=== PATIENT | male | born 1965 | race Caucasian/White ===

== ENCOUNTER 2019-12-18 04:07 | Inpatient (IN) | payer SELFPAY ==
[2019-12-18] MEDS ORDERED: Famotidine 20 MG/2 ML SDV IVPUSH ONE (04:08)
[2019-12-18] MEDS ORDERED: Aluminum Hydroxide/Magnesium Hydroxide/Simethicone Susp 30 ML Cup PO ONE (04:08)
--- NOTE | 2019-12-18 04:15 | EDM.PDOC ---
ED [facility] GENERAL MEDICAL PROBLEM - General Chief Complaint: Abdominal Pain Stated Complaint: AMB Time Seen by Provider: 12/18/19 04:14 Source of Information: Reports: Patient History Limitations: Reports: No Limitations - History of Present Illness INITIAL COMMENTS - FREE TEXT/NARRATIVE: Patient is a 54-year-old male with a past medical history of smoking presents with a chief complaint of epigastric pain. Patient states epigastric pain started on Tuesday. The pain has intermittently continued but is worsened this morning. Patient reports that the pain now radiates to the right upper quadrant. Patient states that the pain is fairly constant and he feels nauseous but is unable to vomit. Patient denies any diarrhea or difficulty passing stool. Patient reports hot flashes but is unsure if he has had a fever. Patient denies any flank pain, dysuria, hematuria. Patient has no prior abdominal surgeries. Patient denies any prior similar history of pain. In addition, patient is not experiencing any chest pain, shortness of breath, back pain. Pmhx: None Pshx: None Family Hx: noncontributory Smoking history? Per HPI Etoh use? none Drug use? none In addition to that documented in the HPI above, the additional ROS was obtained : Constitutional: Denies fevers or chills Eyes: Denies vision changes ENMT: Denies sore throat CV: Denies chest pain Resp: Denies SOB GI: Per HPI : Denies painful urination MSK: Denies recent trauma Skin: Denies new rashes Neuro: Denies new numbness or tingling or weakness Endocrine: Denies unexpected weight loss Heme: Denies bleeding disorders I have reviewed the triage vital signs Const: Well nourished, well developed, appears stated age Eyes: PERRL, no conjunctival injection HENT: NCAT, Neck supple without meningismus CV: RRR, Warm, well-perfused extremities RESP: CTAB, Unlabored respiratory effort GI: Tender palpation of the right upper quadrant positive Ingram sign. No guarding, non-distended, no masses MSK: No gross deformities appreciated Skin: Warm, dry. No rashes Neuro: Alert, video game technician II-XII grossly intact. Sensation and motor function of extremities grossly intact. Psych: Appropriate mood and affect Assessment and plan: Patient is 54-year-old male with a chief complaint of right upper quadrant abdominal pain. Patient has elevated white blood cell count but is afebrile and not tachycardic. Patient CT scan demonstrates distended gallbladder with gallbladder wall edema and possible stone in the neck. Patient will have right upper quadrant ultrasound done and is currently pending that study at this time. Case is discussed with Dr. Escalera the on-call general surgeon who is concerned for gallbladder necrosis and recommended n.p.o., IV fluids, antibiotics. Patient will be admitted to general surgery for further antibiotic administration and for surgical evaluation. Right Upper Abdomen Pain Score (Numeric/FACES): 7 - Related Data Allergies Allergy/AdvReac Type Severity Reaction Status Date / Time No Known Allergies Allergy Verified 12/18/19 04:08 Home Meds: Home Meds Non-Formulary Medication [NF Drug] 1 each EARRT ASDIRECTED 12/18/19 [History] Past Medical History - Infectious Disease History Infectious Disease History: Reports: Measles, Mumps - Past Surgical History HEENT Surgical History: Reports: Myringotomy w Tube(s) Social & Family History - Family History Family Medical History: Noncontributory - Tobacco Use Smoking Status *Q: Current Every Day Smoker Years of Tobacco use: 35 Packs/Tins Daily: 2 - Caffeine Use Caffeine Use: Reports: Soda - Recreational Drug Use Recreational Drug Use: No ED ROS GENERAL - Review of Systems Review Of Systems: See Below ED EXAM, GI/ABD - Physical Exam Exam: See Below Course - Vital Signs Last Recorded V/S: Last Vital Signs Temp 36.7 C 12/18/19 04:08 Pulse 86 12/18/19 04:08 Resp 19 12/18/19 04:08 BP 164/98 H 12/18/19 04:08 Pulse Ox 96 12/18/19 04:08 - Orders/Labs/Meds Orders: Active Orders 24 hr Category Date Time Status Admission Status [Patient Status] [ADT] Stat ADT 12/18/19 06:12 Active EKG Documentation Completion [RC] STAT Care 12/18/19 04:08 Active Abdomen Ltd [US] Stat Exams 12/18/19 06:08 Ordered Piperacillin/Tazobactam [Piperacil-Tazobact] 4.5 gm Med 12/18/19 06:15 Active Sodium Chloride 0.9% [Normal Saline] 100 ml IV ONETIME Sodium Chloride 0.9% [Normal Saline] 1,000 ml Med 12/18/19 04:45 Active IV ASDIRECTED Medication Orders Sodium Chloride (Normal Saline) 1,000 mls @ 999 mls/hr IV ASDIRECTED LALITA Last Admin: 12/18/19 04:47 Dose: 999 mls/hr Piperacillin Sod/Tazobactam (Sod 4.5 gm/ Sodium Chloride) 100 mls @ 100 mls/hr IV ONETIME ONE Stop: 12/18/19 07:14 Labs: Laboratory Tests 12/18/19 12/18/19 12/18/19 Range/Units 04:05 04:05 04:15 WBC 23.46 H (4.0-11.0) K/uL RBC 6.30 H (4.50-5.90) M/uL Hgb 20.0 H (13.0-17.0) g/dL Hct 57.0 H (38.0-50.0) % MCV 90.5 (80.0-98.0) fL MCH 31.7 (27.0-32.0) pg MCHC 35.1 (31.0-37.0) g/dL RDW Std Deviation 43.6 (28.0-62.0) fl RDW Coeff of Jv 13 (11.0-15.0) % Plt Count 252 (150-400) K/uL MPV 10.10 (7.40-12.00) fL Neut % (Auto) 81.6 H (48.0-80.0) % Lymph % (Auto) 11.1 L (16.0-40.0) % [place] % (Auto) 7.2 (0.0-15.0) % Eos % (Auto) 0.0 (0.0-7.0) % Baso % (Auto) 0.1 (0.0-1.5) % Neut # (Auto) 19.1 H (1.4-5.7) K/uL Lymph # (Auto) 2.6 H (0.6-2.4) K/uL [place] # (Auto) 1.7 H (0.0-0.8) K/uL Eos # (Auto) 0.0 (0.0-0.7) K/uL Baso # (Auto) 0.0 (0.0-0.1) K/uL Nucleated RBC % 0.0 /100WBC Nucleated RBCs # 0 K/uL Sodium 139 (136-148) mmol/L Potassium 4.2 (3.5-5.1) mmol/L Chloride 103 (98-107) mmol/L Carbon Dioxide 20.9 L (21.0-32.0) mmol/L BUN 16 (7.0-18.0) mg/dL Creatinine 1.2 (0.8-1.3) mg/dL Est Cr Clr Drug Dosing 68.74 mL/min Estimated GFR (MDRD) > 60.0 ml/min Glucose 150 H (74-106) mg/dL Calcium 10.1 (8.5-10.1) mg/dL Total Bilirubin 0.7 (0.2-1.0) mg/dL AST 17 (15-37) IU/L ALT 35 (14-63) IU/L Alkaline Phosphatase 89 (46-116) U/L Troponin I < 0.050 (0.000-0.056) ng/mL Total Protein 7.7 (6.4-8.2) g/dL Albumin 4.0 (3.4-5.0) g/dL Globulin 3.7 (2.6-4.0) g/dL Albumin/Globulin Ratio 1.1 (0.9-1.6) Lipase 86 (73-393) U/L Urine Color YELLOW Urine Appearance CLEAR Urine pH 5.5 (5.0-8.0) Ur Specific [place] >= 1.030 (1.001-1.035) Urine Protein TRACE H (NEGATIVE) mg/dL Urine Glucose (UA) NEGATIVE (NEGATIVE) mg/dL Urine Ketones 40 H (NEGATIVE) mg/dL Urine Occult Blood NEGATIVE (NEGATIVE) Urine Nitrite NEGATIVE (NEGATIVE) Urine Bilirubin NEGATIVE (NEGATIVE) Urine Urobilinogen 0.2 (<2.0) EU/dL Ur Leukocyte Esterase NEGATIVE (NEGATIVE) Urine RBC NONE SEEN (0-2/HPF) Urine WBC 0-1 (0-5/HPF) Ur Epithelial Cells RARE (NONE-FEW) Urine Bacteria FEW (NEGATIVE) Urine Mucus FEW (NONE-MOD) Meds: Medications Generic Name Dose Route Start Last Admin Trade Name Freq PRN Reason Stop Dose Admin Sodium Chloride 1,000 mls @ 999 mls/hr 12/18/19 04:45 12/18/19 04:47 Normal Saline IV 999 mls/hr ASDIRECTED LALITA Administration Piperacillin Sod/Tazobactam 100 mls @ 100 mls/hr 12/18/19 06:15 Sod 4.5 gm/ Sodium Chloride IV 12/18/19 07:14 ONETIME ONE Discontinued Medications Generic Name Dose Route Start Last Admin Trade Name Freq PRN Reason Stop Dose Admin Al Hydroxide/Mg Hydroxide 30 ml 12/18/19 04:08 12/18/19 04:15 Mag-Al Plus PO 12/18/19 04:09 30 ml ONETIME ONE Administration Famotidine 20 mg 12/18/19 04:08 12/18/19 04:15 Pepcid IVPUSH 12/18/19 04:09 20 mg ONETIME ONE Administration Iopamidol 100 ml 12/18/19 05:13 12/18/19 05:38 Isovue-370 (76%) IVPUSH 12/18/19 05:14 100 ml ONETIME STA Administration Morphine Sulfate 8 mg 12/18/19 06:07 12/18/19 06:13 Morphine IVPUSH 12/18/19 06:08 8 mg ONETIME ONE Administration Ondansetron HCl 4 mg 12/18/19 06:08 12/18/19 06:14 Zofran IVPUSH 12/18/19 06:09 4 mg ONETIME ONE Administration Departure - Departure Time of Disposition: 06:19 Disposition: Admitted As Inpatient 64 Clinical Impression: Cholecystitis - Discharge Information Forms: ED Department Discharge Sepsis Event Note - Evaluation Sepsis Screening Result: No Definite Risk - Focused Exam Vital Signs: Vital Signs Temp Pulse Resp BP Pulse Ox 12/18/19 04:08 36.7 C 86 19 164/98 H 96 Date Exam was Performed: 12/18/19 Time Exam was Performed: 06:16 - My Orders Last 24 Hours: My Active Orders 12/18/19 04:08 EKG Documentation Completion [RC] STAT 12/18/19 04:45 Sodium Chloride 0.9% [Normal Saline] 1,000 ml IV ASDIRECTED 12/18/19 06:08 Abdomen Ltd [US] Stat 12/18/19 06:12 Admission Status [Patient Status] [ADT] Stat 12/18/19 06:15 Piperacillin/Tazobactam [Piperacil-Tazobact] 4.5 gm Sodium Chloride 0.9% [ Normal Saline] 100 ml IV ONETIME - Assessment/Plan Last 24 Hours: My Active Orders 12/18/19 04:08 EKG Documentation Completion [RC] STAT 12/18/19 04:45 Sodium Chloride 0.9% [Normal Saline] 1,000 ml IV ASDIRECTED 12/18/19 06:08 Abdomen Ltd [US] Stat 12/18/19 06:12 Admission Status [Patient Status] [ADT] Stat 12/18/19 06:15 Piperacillin/Tazobactam [Piperacil-Tazobact] 4.5 gm Sodium Chloride 0.9% [ Normal Saline] 100 ml IV ONETIME
--- NOTE | 2019-12-18 04:32 | CR ---
INDICATION: Chest pain TECHNIQUE: Portable upright frontal view of the chest. COMPARISON: None FINDINGS: The lungs are clear. There is no sizable pleural effusion or pneumothorax. The cardiomediastinal silhouette is normal. The visualized osseous structures are unremarkable. IMPRESSION: No acute intrathoracic process. Dictated by Angela Gardner MD @ Dec 18 2019 4:29AM Signed by Dr. Angela Gardner @ Dec 18 2019 4:29AM
[2019-12-18 04:41] LABS: BLOOD UREA NITROGEN,BUN 16 mg/dL (7.0-18.0); CARBON DIOXIDE,CO2 20.9 mmol/L (21.0-32.0); CHLORIDE,CL 103 mmol/L (98-107); GLUCOSE RANDOM 150 mg/dL (74-106); LIPASE 86 U/L (73-393); POTASSIUM,K 4.2 mmol/L (3.5-5.1); SODIUM,NA 139 mmol/L (136-148)
[2019-12-18] MEDS ORDERED: Sodium Chloride 0.9% 1,000 ML IV SCH (04:45)
[2019-12-18] MEDS ORDERED: Iopamidol 755 Mg/ML 100 ML Bottle IVPUSH STA (05:13)
--- NOTE | 2019-12-18 06:05 | CT ---
Indication: Right upper quadrant abdominal pain Technique: Contrast enhanced axial CT imaging through the abdomen and pelvis. 100 mL Isovue 370 contrast agent was administered intravenously. Sagittal and coronal reconstructions are provided. Comparison: None Findings: The gallbladder is distended. There is gallbladder wall edema. A 13 mm hyperdense stone is seen in the gallbladder neck. There is no significant abnormality of the liver, spleen, pancreas, adrenal glands. The portal vein is patent. There is normal caliber of the abdominal aorta. There is no abdominal lymphadenopathy. A 3 mm nonobstructing stone is noted in the upper pole of the right kidney. The kidneys are otherwise unremarkable. The stomach and duodenum are unremarkable. There are no abnormally dilated small bowel loops. The appendix is noninflamed. There is colonic diverticulosis without wall thickening or pericolonic inflammatory stranding to suggest acute diverticulitis. There is no free intraperitoneal fluid or air. The visualized osseous structures are unremarkable. The included lung bases are clear. Impression: 1. Distended gallbladder with wall edema and cholelithiasis. Findings are concerning for acute calculous cholecystitis. Ultrasound is recommended for confirmation. 2. Colonic diverticulosis without evidence of diverticulitis. 3. Small nonobstructing left renal stone. Please note that all CT scans at this facility use dose modulation, iterative reconstruction, and/or weight-based dosing when appropriate to reduce radiation dose to as low as reasonably achievable. Dictated by Angela Gardner MD @ Dec 18 2019 5:55AM Signed by Dr. Angela Gardner @ Dec 18 2019 6:03AM
[2019-12-18] MEDS ORDERED: Morphine 10 MG/ML Syringe IVPUSH ONE (06:07)
[2019-12-18] MEDS ORDERED: Ondansetron 4 MG/2 ML SDV IVPUSH ONE (06:08)
[2019-12-18] MEDS ORDERED: Piperacillin/Tazobactam 4.5 GM in Sodium Chloride 0.9% 100 ML IV ONE (06:15)
[2019-12-18] MEDS ORDERED: Lactated Ringers 1,000 ML IV SCH (06:30)
[2019-12-18] MEDS ORDERED: Morphine 4 MG/ML Syringe IVPUSH ONE (06:51)
--- NOTE | 2019-12-18 07:12 | US ---
INDICATION: Abdominal pain. TECHNIQUE: Abdominal ultrasound limited to the right upper quadrant. FINDINGS: The liver is normal in size and displays changes of diffuse fatty infiltration. There are no focal abnormalities in the liver. No dilatation of intrahepatic bile ducts. The common bile duct measures 6 mm. 2 centimeter stone in the neck of the gallbladder. Gallbladder wall thickness is normal. Per the technologist notation, positive sonographic Ingram`s sign. The right kidney measures 12.4 cm x 5.5 cm x 5.4 cm. No hydronephrosis. No free fluid in the right upper quadrant. IMPRESSION: 1. Cholelithiasis. Positive sonographic Ingram`s sign. 2. Diffuse fatty infiltration of the liver. Dictated by Petr Mandujano MD @ Dec 18 2019 7:07AM Signed by Dr. Petr Mandujano @ Dec 18 2019 7:09AM
[2019-12-18 08:04] LABS: HEMOGLOBIN A1C 5.4 % (4.5-6.2)
[2019-12-18] MEDS ORDERED: Ondansetron 4 MG/2 ML SDV IVPUSH PRN (08:04)
[2019-12-18] MEDS ORDERED: Sodium Chloride 0.9% 10 ML SDV IV PRN (08:04)
[2019-12-18] MEDS ORDERED: Sodium Chloride 0.9% 2.5 ML Syringe FLUSH PRN (08:04)
[2019-12-18] MEDS ORDERED: diphenhydrAMINE 50 MG/ML SDV IVPUSH PRN (08:04)
[2019-12-18] MEDS ORDERED: Sodium Chloride 0.9% 10 ML Syringe FLUSH PRN (08:04)
[2019-12-18] MEDS ORDERED: Acetaminophen 325 MG Tab PO PRN (08:04)
--- NOTE | 2019-12-18 09:08 | PCM.HP.2 ---
H&P History of Present Illness - General Date of Service: 12/18/19 Admit Problem/Dx: Admission Diagnosis/Problem Admission Diagnosis/Problem Cholecystitis Source of Information: Patient History Limitations: Reports: No Limitations - History of Present Illness Initial Comments - Free Text/Narative: Patient is a 54 year old male who presents with an acute onset of abdominal pain. It started Tuesday. At that time it was epigastric and intermittent. Last night it became constant and severe. It radiated to the RUQ. It was associated with nausea and vomiting. He felt warm and states that he had chills. His PMHx is significant for moderate to heavy smoking most of his adult life. He does not have a primary physician. He has been passing gas and having normal bowel movements. Denies infectious contacts. Denies dysuria, unexplained weight loss, or frequency with urination. He was hypertensive in the ER. HR was normal. He had an elevated WBC of 23K. He had polycythemia with Hct of 20 and HCT of 57. He had an elevated glucose as well. He underwent a CT scan that showed an enlarged and inflamed edematous gallbladder with a 13mm stone stuck in the neck consistent with cholecystitis. US showed cholelithiasis. Right Upper Abdomen Pain Score (Numeric/FACES): 7 - Related Data Allergies/Adverse Reactions: Allergies Allergy/AdvReac Type Severity Reaction Status Date / Time No Known Allergies Allergy Verified 12/18/19 04:08 Home Medications: Home Meds Non-Formulary Medication [NF Drug] 1 each EARRT ASDIRECTED 12/18/19 [History] Past Medical History - Infectious Disease History Infectious Disease History: Reports: Measles, Mumps - Past Surgical History HEENT Surgical History: Reports: Myringotomy w Tube(s) Social & Family History - Family History Family Medical History: Noncontributory - Tobacco Use Smoking Status *Q: Current Every Day Smoker Years of Tobacco use: 35 Packs/Tins Daily: 2 - Caffeine Use Caffeine Use: Reports: Soda - Recreational Drug Use Recreational Drug Use: No H&P Review of Systems - Review of Systems: Review Of Systems: Comprehensive ROS is negative, except as noted in HPI. Exam - Exam Exam: See Below - Vital Signs Vital Signs: Last Vital Signs Temp 37.8 C 12/18/19 08:57 Pulse 89 02/25/20 08:57 Resp 18 12/18/19 08:57 BP 129/67 12/18/19 08:57 Pulse Ox 94 L 12/18/19 08:57 Weight: 97.069 kg - Exam General: Alert, Oriented HEENT: Conjunctiva Clear, Mucosa Moist & [place], Posterior Pharynx Clear Lungs: Normal Respiratory Effort, Decreased Breath Sounds (mild, to bases bilaterally. ) Cardiovascular: Regular Rate, Regular Rhythm GI/Abdominal Exam: Soft, Non-Tender, No Distention, No Mass Back Exam: Normal Inspection Extremities: Normal Inspection - Patient Data Lab Results Last 24 hrs: Laboratory Results - last 24 hr 12/18/19 12/18/19 12/18/19 Range/Units 04:05 04:05 04:15 WBC 23.46 H (4.0-11.0) K/uL RBC 6.30 H (4.50-5.90) M/uL Hgb 20.0 H (13.0-17.0) g/dL Hct 57.0 H (38.0-50.0) % MCV 90.5 (80.0-98.0) fL MCH 31.7 (27.0-32.0) pg MCHC 35.1 (31.0-37.0) g/dL RDW Std Deviation 43.6 (28.0-62.0) fl RDW Coeff of Jv 13 (11.0-15.0) % Plt Count 252 (150-400) K/uL MPV 10.10 (7.40-12.00) fL Neut % (Auto) 81.6 H (48.0-80.0) % Lymph % (Auto) 11.1 L (16.0-40.0) % [place] % (Auto) 7.2 (0.0-15.0) % Eos % (Auto) 0.0 (0.0-7.0) % Baso % (Auto) 0.1 (0.0-1.5) % Neut # (Auto) 19.1 H (1.4-5.7) K/uL Lymph # (Auto) 2.6 H (0.6-2.4) K/uL [place] # (Auto) 1.7 H (0.0-0.8) K/uL Eos # (Auto) 0.0 (0.0-0.7) K/uL Baso # (Auto) 0.0 (0.0-0.1) K/uL Nucleated RBC % 0.0 /100WBC Nucleated RBCs # 0 K/uL Lactate (0.20-2.00) mmol/L Sodium 139 (136-148) mmol/L Potassium 4.2 (3.5-5.1) mmol/L Chloride 103 (98-107) mmol/L Carbon Dioxide 20.9 L (21.0-32.0) mmol/L BUN 16 (7.0-18.0) mg/dL Creatinine 1.2 (0.8-1.3) mg/dL Est Cr Clr Drug Dosing 68.74 mL/min Estimated GFR (MDRD) > 60.0 ml/min Glucose 150 H (74-106) mg/dL Hemoglobin A1c (4.5-6.2) % Calcium 10.1 (8.5-10.1) mg/dL Total Bilirubin 0.7 (0.2-1.0) mg/dL AST 17 (15-37) IU/L ALT 35 (14-63) IU/L Alkaline Phosphatase 89 (46-116) U/L Troponin I < 0.050 (0.000-0.056) ng/mL Total Protein 7.7 (6.4-8.2) g/dL Albumin 4.0 (3.4-5.0) g/dL Globulin 3.7 (2.6-4.0) g/dL Albumin/Globulin Ratio 1.1 (0.9-1.6) Lipase 86 (73-393) U/L Urine Color YELLOW Urine Appearance CLEAR Urine pH 5.5 (5.0-8.0) Ur Specific [place] >= 1.030 (1.001-1.035) Urine Protein TRACE H (NEGATIVE) mg/dL Urine Glucose (UA) NEGATIVE (NEGATIVE) mg/dL Urine Ketones 40 H (NEGATIVE) mg/dL Urine Occult Blood NEGATIVE (NEGATIVE) Urine Nitrite NEGATIVE (NEGATIVE) Urine Bilirubin NEGATIVE (NEGATIVE) Urine Urobilinogen 0.2 (<2.0) EU/dL Ur Leukocyte Esterase NEGATIVE (NEGATIVE) Urine RBC NONE SEEN (0-2/HPF) Urine WBC 0-1 (0-5/HPF) Ur Epithelial Cells RARE (NONE-FEW) Urine Bacteria FEW (NEGATIVE) Urine Mucus FEW (NONE-MOD) 02/25/20 02/25/20 Range/Units 06:30 06:30 WBC (4.0-11.0) K/uL RBC (4.50-5.90) M/uL Hgb (13.0-17.0) g/dL Hct (38.0-50.0) % MCV (80.0-98.0) fL MCH (27.0-32.0) pg MCHC (31.0-37.0) g/dL RDW Std Deviation (28.0-62.0) fl RDW Coeff of Jv (11.0-15.0) % Plt Count (150-400) K/uL MPV (7.40-12.00) fL Neut % (Auto) (48.0-80.0) % Lymph % (Auto) (16.0-40.0) % [place] % (Auto) (0.0-15.0) % Eos % (Auto) (0.0-7.0) % Baso % (Auto) (0.0-1.5) % Neut # (Auto) (1.4-5.7) K/uL Lymph # (Auto) (0.6-2.4) K/uL [place] # (Auto) (0.0-0.8) K/uL Eos # (Auto) (0.0-0.7) K/uL Baso # (Auto) (0.0-0.1) K/uL Nucleated RBC % /100WBC Nucleated RBCs # K/uL Lactate 1.7 (0.20-2.00) mmol/L Sodium (136-148) mmol/L Potassium (3.5-5.1) mmol/L Chloride (98-107) mmol/L Carbon Dioxide (21.0-32.0) mmol/L BUN (7.0-18.0) mg/dL Creatinine (0.8-1.3) mg/dL Est Cr Clr Drug Dosing mL/min Estimated GFR (MDRD) ml/min Glucose (74-106) mg/dL Hemoglobin A1c 5.4 (4.5-6.2) % Calcium (8.5-10.1) mg/dL Total Bilirubin (0.2-1.0) mg/dL AST (15-37) IU/L ALT (14-63) IU/L Alkaline Phosphatase (46-116) U/L Troponin I (0.000-0.056) ng/mL Total Protein (6.4-8.2) g/dL Albumin (3.4-5.0) g/dL Globulin (2.6-4.0) g/dL Albumin/Globulin Ratio (0.9-1.6) Lipase (73-393) U/L Urine Color Urine Appearance Urine pH (5.0-8.0) Ur Specific [place] (1.001-1.035) Urine Protein (NEGATIVE) mg/dL Urine Glucose (UA) (NEGATIVE) mg/dL Urine Ketones (NEGATIVE) mg/dL Urine Occult Blood (NEGATIVE) Urine Nitrite (NEGATIVE) Urine Bilirubin (NEGATIVE) Urine Urobilinogen (<2.0) EU/dL Ur Leukocyte Esterase (NEGATIVE) Urine RBC (0-2/HPF) Urine WBC (0-5/HPF) Ur Epithelial Cells (NONE-FEW) Urine Bacteria (NEGATIVE) Urine Mucus (NONE-MOD) Result Diagrams: 12/18/19 15:04 12/18/19 15:04 Lonnie Results Last 24 hrs: Microbiology 12/18/19 07:12 Anaerobic Blood Culture - Final Blood Sepsis Event Note - Evaluation Sepsis Screening Result: No Definite Risk - Focused Exam Vital Signs: Vital Signs Temp Pulse Resp BP Pulse Ox 12/18/19 08:57 37.8 C 89 18 129/67 94 L 12/18/19 07:22 91 18 147/92 H 93 L 12/18/19 06:10 84 152/98 H 97 12/18/19 05:40 76 16 154/93 H 95 12/18/19 04:40 76 150/97 H 90 L 12/18/19 04:10 69 16 148/93 H 92 L 12/18/19 04:08 36.7 C 86 19 164/98 H 96 Date Exam was Performed: 12/18/19 Time Exam was Performed: 16:44 - Problem List (1) Nephrolithiasis SNOMED Code(s): 57937194 ICD Code: N20.0 - CALCULUS OF KIDNEY Status: Acute Current Visit: Yes (2) Polycythemia secondary to smoking SNOMED Code(s): 01381338 ICD Code: D75.1 - SECONDARY POLYCYTHEMIA Status: Acute Current Visit: Yes (3) Cholecystitis SNOMED Code(s): 62353898 ICD Code: K81.9 - CHOLECYSTITIS, UNSPECIFIED Status: Acute Current Visit : Yes (4) Dehydration SNOMED Code(s): 08284977 ICD Code: E86.0 - DEHYDRATION Status: Acute Current Visit: Yes Problem List Initiated/Reviewed/Updated: Yes Orders Last 24hrs: Active Orders 24 hr Category Date Time Status Patient Status [ADT] Routine ADT 12/18/19 08:04 Active EKG Documentation Completion [RC] STAT Care 12/18/19 04:08 Active Intake and Output [RC] Q4HR Care 12/18/19 08:06 Active May Shower [RC] ASDIRECTED Care 12/18/19 08:04 Active Oxygen Therapy [RC] PRN Care 12/18/19 08:04 Active Pulse Oximetry [RC] INTERMITTENT Care 12/18/19 08:06 Active RT Incentive Spirometry [RC] Q1HWA Care 12/18/19 08:04 Active Up ad Sneha [RC] ASDIRECTED Care 12/18/19 08:04 Active Vital Signs [RC] PER UNIT ROUTINE Care 12/18/19 08:04 Active Clear Liquid Diet [DIET] Diet 12/18/19 Breakfast Active CBC WITH AUTO DIFF [HEME] AM Lab 12/19/19 05:11 Ordered COMPREHENSIVE METABOLIC PN,CMP [CHEM] AM Lab 12/19/19 05:11 Ordered CULTURE BLOOD [BC] Stat Lab 12/18/19 06:30 Received CULTURE BLOOD [BC] Stat Lab 12/18/19 07:12 Results Acetaminophen [Tylenol] Med 12/18/19 08:04 Active 650 mg PO Q6H PRN Acetaminophen/HYDROcodone [[place] 325-5 MG] Med 12/18/19 08:04 Active 2 tab PO Q4H PRN Lactated Ringers [Ringers, Lactated] 1,000 ml Med 12/18/19 06:30 Active IV ASDIRECTED Lactated Ringers [Ringers, Lactated] 1,000 ml Med 12/18/19 08:15 Active IV ASDIRECTED Morphine Med 12/18/19 08:04 Active 4 mg IVPUSH Q2H PRN Nicotine [Habitrol] Med 12/18/19 09:00 Active 14 mg TRDERM DAILY Ondansetron [Zofran] Med 12/18/19 08:04 Active 4 mg IVPUSH Q6H PRN Sodium Chloride 0.9% [Normal Saline] Med 12/18/19 08:04 Active 10 ml IV ASDIRECTED PRN Sodium Chloride 0.9% [Normal Saline] 1,000 ml Med 12/18/19 04:45 Active IV ASDIRECTED Sodium Chloride 0.9% [Saline Flush] Med 12/18/19 08:04 Active 10 ml FLUSH ASDIRECTED PRN Sodium Chloride 0.9% [Saline Flush] Med 12/18/19 08:04 Active 2.5 ml FLUSH ASDIRECTED PRN diphenhydrAMINE [Benadryl] Med 12/18/19 08:04 Active 50 mg IVPUSH Q4H PRN Peripheral IV Insertion Adult [OM.PC] Urgent Oth 12/18/19 08:04 Ordered Resuscitation Status Routine Resus Stat 12/18/19 08:04 Ordered Medication Orders Acetaminophen (Tylenol) 650 mg PO Q6H PRN PRN Reason: Pain (mild 1-3) Hydrocodone Bitart/Acetaminophen ([place] 325-5 Mg) 2 tab PO Q4H PRN PRN Reason: Pain (moderate 4-6) Diphenhydramine HCl (Benadryl) 50 mg IVPUSH Q4H PRN PRN Reason: Itching Sodium Chloride (Normal Saline) 1,000 mls @ 999 mls/hr IV ASDIRECTED [facility] Last Admin: 12/18/19 04:47 Dose: 999 mls/hr Lactated Ringer's (Ringers, Lactated) 1,000 mls @ 999 mls/hr IV ASDIRECTED [facility] Last Admin: 12/18/19 07:53 Dose: 999 mls/hr Lactated Ringer's (Ringers, Lactated) 1,000 mls @ 125 mls/hr IV ASDIRECTED [facility] Morphine Sulfate (Morphine) 4 mg IVPUSH Q2H PRN PRN Reason: Pain (severe 7-10) Nicotine (Habitrol) 14 mg TRDERM DAILY [facility] Ondansetron HCl (Zofran) 4 mg IVPUSH Q6H PRN PRN Reason: Nausea/Vomiting Sodium Chloride (Saline Flush) 10 ml FLUSH ASDIRECTED PRN PRN Reason: Keep Vein Open Sodium Chloride (Saline Flush) 2.5 ml FLUSH ASDIRECTED PRN PRN Reason: Keep Vein Open Sodium Chloride (Normal Saline) 10 ml IV ASDIRECTED PRN PRN Reason: IV Use Assessment/Plan Comment:: Patient has acute cholecystitis secondary to obstruction from a gallstone in the neck of the gallbladder. However given his high WBC this may be gangrenous or necrotic. His LFTs are normal. He was given clear liquids and IVF resuscitation. His HGB/HCT have improved on recheck this afternoon. He likely has COPD that is not diagnosed but his lung sounds are clear, just diminished at the bases. Hgb A1C was normal. We discussed the pathophysiology of biliary disease and the need for a cholecystectomy. I explained the open and laparoscopic approach and expected perioperative course with each. We discussed the expected perioperative course for each procedure. I explained the risks including bleeding, infection or damage to surrounding structures. He verbalized understanding and wishes to proceed. Pain: IV morphine prn. [place] prn CV: VS per unit routine. Pulm: IS use. Monitor O2 sats closely. Prn duo nebs for SOB/wheezing. GI: Clears tonight. NPO at midnight. Recheck CMP in am. Renal: BUN improved. Cr still 1.2. LR @ 125ml/hr ID: IV zosyn. Recheck CBC in am. Heme: Polycythemia likely due to dehydration and smoking. Continue fluid resucitation. recheck in am Px: SCDs
[2019-12-18] MEDS: Nicotine 14 MG/24 Hr Patch TRDERM SCH (11:26)
[2019-12-18] MEDS: Lactated Ringers 1,000 ML IV SCH (14:07)
[2019-12-18 15:55] LABS: BLOOD UREA NITROGEN,BUN 12 mg/dL (7.0-18.0); CARBON DIOXIDE,CO2 25.6 mmol/L (21.0-32.0); CHLORIDE,CL 105 mmol/L (98-107); GLUCOSE RANDOM 123 mg/dL (74-106); POTASSIUM,K 4.2 mmol/L (3.5-5.1); SODIUM,NA 141 mmol/L (136-148)
[2019-12-18] MEDS ORDERED: Albuterol/Ipratropium 3.0-0.5 MG/3 ML Neb Soln NEB PRN (16:58)
[2019-12-18] MEDS: Piperacillin/Tazobactam 3.375 GM in Sodium Chloride 0.9% 50 ML IV SCH (19:49)
[2019-12-18] MEDS: Morphine 4 MG/ML Syringe IVPUSH PRN (20:03)
[2019-12-19] MEDS: Lactated Ringers 1,000 ML IV SCH ×2 (00:16→20:00)
[2019-12-19] MEDS: Piperacillin/Tazobactam 3.375 GM in Sodium Chloride 0.9% 50 ML IV SCH ×4 (01:34→21:01)
[2019-12-19 06:07] LABS: BLOOD UREA NITROGEN,BUN 11 mg/dL (7.0-18.0); CARBON DIOXIDE,CO2 25.2 mmol/L (21.0-32.0); CHLORIDE,CL 104 mmol/L (98-107); GLUCOSE RANDOM 116 mg/dL (74-106); POTASSIUM,K 4.2 mmol/L (3.5-5.1); SODIUM,NA 139 mmol/L (136-148)
[2019-12-19] MEDS ORDERED: Bupivacaine 0.5% 30 ML SDV ONE ×2 (07:51→08:02)
--- NOTE | 2019-12-19 08:10 | PCM.PREANE ---
Preanesthetic Assessment - Anesthesia/Transfusion/Family Hx Anesthesia History: Prior Anesthesia Without Reaction Family History of Anesthesia Reaction: No Transfusion History: Prior Transfusion Without Reaction - Review of Systems General: No Symptoms Cardiovascular: No Symptoms Gastrointestinal: Abdominal Pain Neurological: No Symptoms Other: Reports: None - Physical Assessment NPO Status Date: 12/18/19 Vital Signs: Last Vital Signs Temp 100.1 F 12/19/19 03:15 Pulse 82 12/19/19 03:15 Resp 15 12/19/19 03:15 BP 118/72 12/19/19 03:15 Pulse Ox 92 L 12/19/19 03:15 Height: 5 ft 10 in Weight: 97.069 kg ASA Class: 3 Mental Status: Alert & Oriented x3 Airway Class: Mallampati = 3 Dentition: Reports: Normal Dentition ROM/Head Extension: Full Lungs: Clear to Auscultation, Normal Respiratory Effort Cardiovascular: Regular Rate, Regular Rhythm - Lab Values: Laboratory Last Values WBC 21.81 K/uL (4.0-11.0) H 12/19/19 05:32 RBC 5.64 M/uL (4.50-5.90) 12/19/19 05:32 Hgb 17.5 g/dL (13.0-17.0) H 12/19/19 05:32 Hct 52.3 % (38.0-50.0) H 12/19/19 05:32 MCV 92.7 fL (80.0-98.0) 12/19/19 05:32 MCH 31.0 pg (27.0-32.0) 12/19/19 05:32 MCHC 33.5 g/dL (31.0-37.0) 12/19/19 05:32 RDW Std Deviation 45.7 fl (28.0-62.0) 12/19/19 05:32 RDW Coeff of Jv 13 % (11.0-15.0) 12/19/19 05:32 Plt Count 218 K/uL (150-400) 12/19/19 05:32 MPV 10.20 fL (7.40-12.00) 12/19/19 05:32 Neut % (Auto) 78.0 % (48.0-80.0) 12/19/19 05:32 Lymph % (Auto) 11.4 % (16.0-40.0) L 12/19/19 05:32 Taliaferro % (Auto) 10.4 % (0.0-15.0) 12/19/19 05:32 Eos % (Auto) 0.1 % (0.0-7.0) 12/19/19 05:32 Baso % (Auto) 0.1 % (0.0-1.5) 12/19/19 05:32 Neut # (Auto) 17.0 K/uL (1.4-5.7) H 12/19/19 05:32 Lymph # (Auto) 2.5 K/uL (0.6-2.4) H 12/19/19 05:32 Taliaferro # (Auto) 2.3 K/uL (0.0-0.8) H 12/19/19 05:32 Eos # (Auto) 0.0 K/uL (0.0-0.7) 12/19/19 05:32 Baso # (Auto) 0.0 K/uL (0.0-0.1) 12/19/19 05:32 Add Manual Diff YES 12/18/19 15:04 Neutrophils % (Manual) 80 % (48.0-80.0) 12/18/19 15:04 Lymphocytes % (Manual) 11 % (16.0-40.0) L 12/18/19 15:04 Monocytes % (Manual) 9 % (0.0-15.0) 12/18/19 15:04 Nucleated RBC % 0.0 /100WBC 12/19/19 05:32 Absolute Seg Neuts 17.5 (1.4-5.7) H 12/18/19 15:04 Lymphocytes # (Manual) 2.4 (0.6-2.4) 12/18/19 15:04 Monocytes # (Manual) 2.0 (0.0-0.8) H 12/18/19 15:04 Nucleated RBCs # 0 K/uL 12/19/19 05:32 Lactate 1.7 mmol/L (0.20-2.00) 12/18/19 06:30 Sodium 139 mmol/L (136-148) 12/19/19 05:32 Potassium 4.2 mmol/L (3.5-5.1) 12/19/19 05:32 Chloride 104 mmol/L (98-107) 12/19/19 05:32 Carbon Dioxide 25.2 mmol/L (21.0-32.0) 12/19/19 05:32 BUN 11 mg/dL (7.0-18.0) 12/19/19 05:32 Creatinine 1.2 mg/dL (0.8-1.3) 12/19/19 05:32 Est Cr Clr Drug Dosing 70.97 mL/min 12/19/19 05:32 Estimated GFR (MDRD) > 60.0 ml/min 12/19/19 05:32 Glucose 116 mg/dL (74-106) H 12/19/19 05:32 Hemoglobin A1c 5.4 % (4.5-6.2) 12/18/19 06:30 Calcium 8.7 mg/dL (8.5-10.1) 12/19/19 05:32 Total Bilirubin 1.2 mg/dL (0.2-1.0) H 12/19/19 05:32 AST 17 IU/L (15-37) 12/19/19 05:32 ALT 37 IU/L (14-63) 12/19/19 05:32 Alkaline Phosphatase 68 U/L (46-116) 12/19/19 05:32 Troponin I < 0.050 ng/mL (0.000-0.056) 12/18/19 04:05 Total Protein 6.7 g/dL (6.4-8.2) 12/19/19 05:32 Albumin 3.0 g/dL (3.4-5.0) L 12/19/19 05:32 Globulin 3.7 g/dL (2.6-4.0) 12/19/19 05:32 Albumin/Globulin Ratio 0.8 (0.9-1.6) L 12/19/19 05:32 Lipase 86 U/L (73-393) 12/18/19 04:05 Urine Color YELLOW 12/18/19 04:15 Urine Appearance CLEAR 12/18/19 04:15 Urine pH 5.5 (5.0-8.0) 12/18/19 04:15 Ur Specific Register >= 1.030 (1.001-1.035) 12/18/19 04:15 Urine Protein TRACE mg/dL (NEGATIVE) H 12/18/19 04:15 Urine Glucose (UA) NEGATIVE mg/dL (NEGATIVE) 12/18/19 04:15 Urine Ketones 40 mg/dL (NEGATIVE) H 12/18/19 04:15 Urine Occult Blood NEGATIVE (NEGATIVE) 12/18/19 04:15 Urine Nitrite NEGATIVE (NEGATIVE) 12/18/19 04:15 Urine Bilirubin NEGATIVE (NEGATIVE) 12/18/19 04:15 Urine Urobilinogen 0.2 EU/dL (<2.0) 12/18/19 04:15 Ur Leukocyte Esterase NEGATIVE (NEGATIVE) 12/18/19 04:15 Urine RBC NONE SEEN (0-2/HPF) 12/18/19 04:15 Urine WBC 0-1 (0-5/HPF) 12/18/19 04:15 Ur Epithelial Cells RARE (NONE-FEW) 12/18/19 04:15 Urine Bacteria FEW (NEGATIVE) 12/18/19 04:15 Urine Mucus FEW (NONE-MOD) 12/18/19 04:15 - Allergies Allergies/Adverse Reactions: Allergies Allergy/AdvReac Type Severity Reaction Status Date / Time No Known Allergies Allergy Verified 12/18/19 04:08 - Blood Blood Available: No - Anesthesia Plan Pre-Op Medication Ordered: None - Acknowledgements Anesthesia Type Planned: General Anesthesia Pt an Appropriate Candidate for the Planned Anesthesia: Yes Alternatives and Risks of Anesthesia Discussed w Pt/Guardian: Yes Pt/Guardian Understands and Agrees with Anesthesia Plan: Yes Additional Comments: PMH: cholecystitis/ poss gangrenous, elevated Hb/Hct- either primary polycythemia vera or erythrocytosis secondary to COPD/chronic hypoxemia, Hct down from 60 to 52 with hydration. optimal Hct for secondary erythrocytosis is about 55%, (if primary PV optimal would be 45%). It seems unusual to have a hypoxemic erythrocytosis with room air sats of 92-94%. Pt will get erythropoietin testing and possible referal to facility practice specialist post op. Pt needs surgery now and cannot be delayed for further w/u. PLAN: PreAnesthesia Questionnaire HEENT History: Reports: None Cardiovascular History: Reports: None Gastrointestinal History: Reports: Cholelithiasis - Infectious Disease History Infectious Disease History: Reports: Measles, Mumps - Past Surgical History HEENT Surgical History: Reports: Myringotomy w Tube(s) - SUBSTANCE USE Smoking Status *Q: Current Every Day Smoker Tobacco Use Within Last Twelve Months: Cigarettes Second Hand Smoke Exposure: No Recreational Drug Use History: No - HOME MEDS Home Medications: Home Meds Non-Formulary Medication [NF Drug] 1 each EARRT ASDIRECTED 12/18/19 [History] - CURRENT (IN HOUSE) MEDS Current Meds: Current Medications Hydrocodone Bitart/Acetaminophen (Doland 325-5 Mg) 2 tab PO Q4H PRN PRN Reason: Pain (moderate 4-6) Albuterol/Ipratropium (Duoneb 3.0-0.5 Mg/3 Ml) 3 ml NEB Q6HRRT PRN PRN Reason: Wheezing Diphenhydramine HCl (Benadryl) 50 mg IVPUSH Q4H PRN PRN Reason: Itching Sodium Chloride (Normal Saline) 1,000 mls @ 999 mls/hr IV ASDIRECTED [facility] Last Admin: 12/18/19 04:47 Dose: 999 mls/hr Lactated Ringer's (Ringers, Lactated) 1,000 mls @ 999 mls/hr IV ASDIRECTED [facility] Last Admin: 12/18/19 07:53 Dose: 999 mls/hr Lactated Ringer's (Ringers, Lactated) 1,000 mls @ 125 mls/hr IV ASDIRECTED [facility] Last Admin: 12/19/19 00:16 Dose: 125 mls/hr Piperacillin Sod/Tazobactam (Sod 3.375 gm/ Sodium Chloride) 50 mls @ 100 mls/ hr IV Q6H [facility] Last Admin: 12/19/19 01:34 Dose: 100 mls/hr Morphine Sulfate (Morphine) 4 mg IVPUSH Q2H PRN PRN Reason: Pain (severe 7-10) Last Admin: 12/18/19 20:03 Dose: 4 mg Nicotine (Habitrol) 14 mg TRDERM DAILY [facility] Last Admin: 12/18/19 11:26 Dose: Not Given Ondansetron HCl (Zofran) 4 mg IVPUSH Q6H PRN PRN Reason: Nausea/Vomiting Sodium Chloride (Saline Flush) 10 ml FLUSH ASDIRECTED PRN PRN Reason: Keep Vein Open Sodium Chloride (Saline Flush) 2.5 ml FLUSH ASDIRECTED PRN PRN Reason: Keep Vein Open Sodium Chloride (Normal Saline) 10 ml IV ASDIRECTED PRN PRN Reason: IV Use Discontinued Medications Acetaminophen (Tylenol) 650 mg PO Q6H PRN PRN Reason: Pain (mild 1-3) Al Hydroxide/Mg Hydroxide (Mag-Al Plus) 30 ml PO ONETIME ONE Stop: 12/18/19 04:09 Last Admin: 12/18/19 04:15 Dose: 30 ml Bupivacaine HCl (Marcaine 0.5%) Confirm Administered Dose 30 ml .ROUTE .STK-MED ONE Stop: 12/19/19 07:52 Famotidine (Pepcid) 20 mg IVPUSH ONETIME ONE Stop: 12/18/19 04:09 Last Admin: 12/18/19 04:15 Dose: 20 mg Piperacillin Sod/Tazobactam (Sod 4.5 gm/ Sodium Chloride) 100 mls @ 100 mls/hr IV ONETIME ONE Stop: 12/18/19 07:14 Last Admin: 12/18/19 06:54 Dose: 100 mls/hr Iopamidol (Isovue-370 (76%)) 100 ml IVPUSH ONETIME STA Stop: 12/18/19 05:14 Last Admin: 12/18/19 05:38 Dose: 100 ml Morphine Sulfate (Morphine) 8 mg IVPUSH ONETIME ONE Stop: 12/18/19 06:08 Last Admin: 12/18/19 06:13 Dose: 8 mg Morphine Sulfate (Morphine) 4 mg IVPUSH ONETIME ONE Stop: 12/18/19 06:52 Last Admin: 12/18/19 07:02 Dose: 4 mg Ondansetron HCl (Zofran) 4 mg IVPUSH ONETIME ONE Stop: 12/18/19 06:09 Last Admin: 12/18/19 06:14 Dose: 4 mg
[2019-12-19] MEDS ORDERED: Ondansetron 4 MG/2 ML SDV ONE (08:43)
[2019-12-19] MEDS ORDERED: Propofol 200 MG/20 ML SDV ONE (08:43)
[2019-12-19] MEDS ORDERED: Midazolam 1 MG/ML 2 ML SDV ONE (08:43)
[2019-12-19] MEDS ORDERED: fentaNYL 250 MCG/5 ML SDV ONE (08:43)
[2019-12-19] MEDS ORDERED: Rocuronium 100 MG/10 ML Syringe ONE (08:43)
[2019-12-19] MEDS ORDERED: Lidocaine 2% 5 ML SDV ONE (08:43)
[2019-12-19] MEDS ORDERED: Phenylephrine/Normal Saline 100 MCG/ML 10 ML Syringe ONE (09:08)
[2019-12-19] MEDS: Nicotine 14 MG/24 Hr Patch TRDERM SCH (09:09)
[2019-12-19] MEDS ORDERED: HYDROmorphone 2 MG/ML Syringe ONE (09:40)
[2019-12-19] MEDS ORDERED: Dexamethasone 4 MG/ML 5 ML MDV ONE (10:13)
[2019-12-19] MEDS ORDERED: Ketamine 500 mg/10 ML MDV ONE (10:32)
[2019-12-19] MEDS ORDERED: Sugammadex Sodium 200 MG/2 ML VIAL ONE (10:36)
[2019-12-19] MEDS ORDERED: HYDROmorphone 2 MG/ML Syringe IVPUSH PRN (11:20)
[2019-12-19] MEDS ORDERED: Naloxone 0.4 MG/ML Syringe IVPUSH PRN (11:20)
[2019-12-19] MEDS ORDERED: Albuterol 0.083% 2.5 MG/3 ML Neb Soln NEB PRN (11:20)
[2019-12-19] MEDS ORDERED: EPINEPHrine 1:10,000 1 MG/10 ML Syringe IVPUSH PRN (11:20)
[2019-12-19] MEDS ORDERED: fentaNYL 100 MCG/2 ML SDV IVPUSH PRN (11:20)
[2019-12-19] MEDS ORDERED: 50% Dextrose in Water 50 ML Syringe IVPUSH PRN (11:20)
[2019-12-19] MEDS ORDERED: Atropine 0.1 MG/ML 10 ML Syringe IVPUSH PRN ×2 (11:20)
[2019-12-19] MEDS ORDERED: Vasopressin 20 Units/1 ML MDV ONE (11:23)
--- NOTE | 2019-12-19 12:00 | PCM.OPNOTE ---
<Carson Gutierrez M - Last Filed: 12/19/19 11:56> - General Post-Op/Procedure Note Date of Surgery/Procedure: 12/19/19 Operative Procedure(s): Cholecystectomy Findings: Gangrenous cholecystitis Pre Op Diagnosis: Acute cholecystitis Post-Op Diagnosis: Gangrenous cholecystitis Anesthesia Technique: General ET Tube Primary Surgeon: Kay Eden Fluid Replacement, Intraop: 4,000 Output, Urine Amount: 350 EBL in mLs: 400 Surgical Drain/Tube Type: James Drain Condition: Stable Free Text/Narrative:: Intake & Output 12/18/19 12/19/19 12/19/19 22:59 06:59 14:59 Intake Total 50 1311 Output Total 375 Balance 50 936 <Kay Eden M - Last Filed: 12/19/19 12:05> - General Post-Op/Procedure Note Free Text/Narrative:: Intake & Output 12/18/19 12/19/19 12/19/19 22:59 06:59 14:59 Intake Total 50 1311 4000 Output Total 375 350 Balance 50 936 3650
--- NOTE | 2019-12-19 12:51 | PCM.POSTAN ---
POST ANESTHESIA ASSESSMENT - MENTAL STATUS Mental Status: Alert - VITAL SIGNS Vital Signs: Last Vital Signs Temp 97.9 F 12/19/19 08:00 Pulse 96 12/19/19 12:30 Resp 14 12/19/19 12:30 BP 99/55 L 12/19/19 12:30 Pulse Ox 95 12/19/19 12:30 - RESPIRATORY Respiratory Status: Respiratory Rate WNL, Airway Patent, O2 Saturation Stable, Supplemental Oxygen Free Text/Narrative:: Pt on Bipap 14/8 with 80% O2 currently and Sats 98% - CARDIOVASCULAR CV Status: Pulse Rate WNL, Blood Pressure Stable Free Text/Narrative:: Tachycardia at the beginning of surgery has resolved and BP stable on no pressures. - GASTROINTESTINAL GI Status: No Symptoms, Other (NG in place to LIS) - PAIN Pain Score: 0 (Pt not reporting pain) - POST OP HYDRATION Hydration Status: Adequate & Stable - OBSERVATIONS Free Text/Narrative:: Pt currently stable for tx to ICU on Bipap. No reported pain or nausea.
[2019-12-19] MEDS ORDERED: Bupivacaine 0.25%/EPINEPHrine 1:200,000 10 ML SDV ONE (13:12)
--- NOTE | 2019-12-19 14:43 | PN ---
[facility] Physician - Brief Progress [id number]/26/2020 14:21[facility] Simba monsivais, [place] - SANKET (PEGGY) - SANKET KENTALVAREZ FLEMINGHernanDate of Service 12/19/2019 14:21HPI/Events o f Note eICU admission [id number] M present to the hospital with acute onset of abdominal pain that star ryan 2 days prior. It was constant and severe in nature and radiating to RUQ with associated n/v/chill s. On arrival to the ED patient was noted to be hypertensive and initial lab workup revealed leukocy tosis and polycythemia. Patient had CT abd done which revealed large inflammed gallbladder with 13mm stone. Patient was given IV fluids, started on Zosyn and general surgery was consulted. Patient unde rwent cholecystectomy on 12/19 which revealed gangrenous cholecystitis, with sucessfull filippo (laprosc opic changed to open) and extubation post op to Bipap. EBL per note is 400ml and patient currently he modynamically stable. Patient laying in bed at 45 degrees, on BiPAP, no acute distress eyes closed co mfortable. BiPAP setting 14/8 with tidal volume at 900Vital signs reviewed Labs/EMR/imaging reviewed Acute gangrenous cholecystitis-Status post cholecystectomy-Recommend continuing IV Zosyn. Blood cx se nt. Gram stain/Cx from specimen pending. -Post op management per Surgery team in regards to DVT proph y and Diet. -We can assist further with pain control if needed. Acute resp failure -Currently on Bipa p, will recommend weaning FiO2 and trial patient off Bipap later today once more awake. -Recommend In centive spirometry once off bipap-Recommed post op CXR. GI prophy- on PepcidInterventions Major-Infec tion - evaluation and management, Respiratory failure - evaluation and management, Other: S/p Cholecy stectomy
[2019-12-19] MEDS: Morphine 4 MG/ML Syringe IVPUSH PRN (15:23)
[2019-12-19] MEDS: Ketorolac 15 MG/ML SDV IVPUSH PRN (17:31)
--- NOTE | 2019-12-19 18:43 | OR ---
SURGEON: KAY OROZCO MD DATE OF PROCEDURE: 12/19/2019 PREOPERATIVE DIAGNOSIS: Acute cholecystitis. POSTOPERATIVE DIAGNOSIS: Gangrenous cholecystitis. PROCEDURE PERFORMED: Laparoscopic, converted to open, cholecystectomy. PRIMARY SURGEON: Kay Orozco MD. SECONDARY SURGEON: Rodrigo Nava MD. PLANT ANATOMY TEACHER: production administrative assistant: Dr. Carson Gutierrez, vice president of brand management. FLUIDS: 4000 mL of crystalloid. ESTIMATED BLOOD LOSS: 400 mL. URINE OUTPUT: 350 mL. FINDINGS: Gangrenous and necrotic gallbladder. COMPLICATIONS: None. INDICATIONS: The patient is a 54-year-old male who presented to the emergency room yesterday with epigastric and right upper quadrant abdominal pain. Workup revealed a leukocytosis of 23,000 as well as a large stone in the neck of the gallbladder with signs of acute cholecystitis. He was given IV fluids and IV antibiotics. This morning he has more severe right upper quadrant pain and is more tender. His white count did not improve overnight. I explained the need for a laparoscopic, possible open, cholecystectomy. I explained my concerns given his high white count and his pain that the gallbladder was necrotic. I explained that should I be unable to perform it safely laparoscopically, I would convert to open. I explained the expected perioperative course of each procedure. The patient and I discussed the risks including bleeding, infection, or damage to surrounding structures. He verbalized understanding and wishes to proceed. PROCEDURE IN DETAIL: The patient was brought into the OR and placed on the OR table in supine position. A time-out was completed verifying the patient's name, age, date of , allergies, and procedure to be performed. General endotracheal anesthesia was induced. The left arm was tucked to the patient's side and a Horowitz catheter placed. The abdomen was shaved and prepped in usual standard fashion. I anesthetized the infraumbilical fold with 0.5% Marcaine plain. An 11 blade was used to make an incision along the infraumbilical fold. Cautery was used to dissect down to the level of subcutaneous fat. I dissected bluntly down to the fascia and elevated with Aris's. It was incised sharply using curved Russell scissors. I then identified the posterior rectus sheath. This was elevated with hemostats and incised sharply. Entry into the abdomen was palpated digitally. A 12 mm Irving trocar was inserted through this incision and the abdomen was insufflated. A 5 mm 30-degree scope was inserted in the abdomen, and I inspected the area underneath my initial trocar placement. No damage to surrounding structures was noted. The patient was then placed into reverse Trendelenburg position and airplaned slightly to the left. 5 mm trocars were placed under direct visualization in the following locations; one in the epigastric area, one in the right flank, and one 2 fingerbreadths below the right subcostal margin in the midclavicular line. The gallbladder itself was covered in omentum. I was able to sweep down the omental adhesions bluntly. The gallbladder appeared severely inflamed and distended. An aspirating needle was placed through the dome of the gallbladder and 80 mL of cloudy fluid was aspirated. This was sent to pathology for culture. I grasped the dome of the gallbladder with an atraumatic grasper, but it went right through the tissue perforating the gallbladder. Given this, I knew that the gallbladder was necrotic and the decision was made to proceed with an open procedure. Dr. Rodrigo Nava was then called into the case. I closed the fascia at the infraumbilical port site with interrupted 0 Vicryl sutures. My trocars were then removed. A 15 blade was used to make a right upper quadrant oblique incision connecting my epigastric and subcostal port sites. Cautery was used to dissect down through the layers of the abdominal wall. The posterior rectus sheath was elevated with hemostats and incised sharply. The incision was then opened up the remainder of the way up using cautery. Moistened rolled laps and retractors were then placed inside the abdomen and the gallbladder was inspected. Attachments of the gallbladder wall to the surrounding omentum were taken down bluntly with finger dissection. This cleared away all the surrounding adhesions. The dome of the gallbladder was grasped with a Chantel clamp. We attempted to grasp the gallbladder more proximally. However, the clamp went right through the gallbladder tissue. Instead, we focused on the proximal half of the infundibulum. Using blunt dissection with a right angle a Kittner device, we were able to take down some of the inflammatory rind around the infundibulum. We identified a structure, which appeared to be going into the gallbladder, but since we could not clearly identify our anatomy, this was encircled with a piece of 0 Vicryl and tagged. Great care was taken not to put any tension on this structure. Given our difficulty dissecting out the proximal half of the gallbladder, the decision was made to proceed with a dome down approach. Metzenbaum scissors was used to open up the inflammatory rind around the distal half of the gallbladder. The gallbladder was clearly necrotic with patches of black tissue along the body of the gallbladder itself. This made for extremely difficult dissection. We carefully took down the adhesions between the gallbladder wall and the liver bed itself. Once the proximal half of the gallbladder was mobilized, we moved our clamp down to the middle half of the gallbladder wall, but when we did this, it tore through the cystic artery on the gallbladder wall. Pulsatile bleeding was noted. We attempted to control this with clips, however, were unable to do so. The gallbladder wall and artery were clamped with a chantel, and we attempted to use a 2-0 Vicryl on a needle to oversew this area. The tissue was so necrotic, however, that it kept pulling through the vessel. Eventually, we were able to get to tissue with enough integrity to hold the suture in place and the bleeding stopped. We readjusted our retractors and continued dissection along the gallbladder fossa from distal to proximal fashion. Using this technique, we were able to get down upon the infundibulum. There was a large amount of inflammatory rind along the cystic duct and artery. Using only blunt dissection, we were able to identify the cystic artery as it was coming up. We stayed as close to the gallbladder wall as possible and triply clipped and ligated this. This then allowed better dissection along the gallbladder wall. To reassure ourselves of our anatomy, we were able to palpate inside the gallbladder to guide our dissection. A 2 cm stone was removed from inside the gallbladder itself. This had been lodged in the neck of the gallbladder and was the cause of the patient's symptoms. Palpating inside the gallbladder and using it as a guide, we were able to then completely dissect the gallbladder free from its surrounding structures. The gallbladder had actually been adhered to the common bile duct and the hepatic artery. The structure that we had encircled before was the common bile duct. The suture around this was removed and there was no damage to the CBD. We could clearly see the cystic duct as it came up into the gallbladder itself. This was doubly clipped and oversewn with a 2-0 Vicryl suture. We sharply the gallbladder from the distal cystic duct. It was passed off the field and sent to pathology. The abdomen was irrigated with a normal saline-Ancef solution and suctioned out. Pressure was held within the gallbladder fossa for 2 minutes. We reinspected the operative field at that time and it appeared to be hemostatic. However, Surgicel and Avitene were placed in the gallbladder fossa to provide further hemostasis. A 19-Hungarian James drain was brought out through the right flank port site and the drain was placed within the gallbladder fossa. It was secured to the skin using a 2-0 silk suture. The count was performed and all counts were complete and correct, so we began closing our abdominal wall. The peritoneum and posterior sheath were closed with a running 0 Vicryl suture. The anterior fascia and oblique muscles were closed with interrupted 0 Ethibond sutures. An On-Q catheter was placed along the anterior abdominal fascia and secured to the skin using a Tegaderm. The subcutaneous fat layer was closed with a running 3-0 Vicryl suture. The skin was closed with skin lili. The incision at the infraumbilical port site was closed with lili as well. Sterile dressings were applied. The patient was tachycardic, febrile, and hypotensive during the case requiring pressors and aggressive fluid resuscitation. As the anesthesia wore off his heart rate improved and he was weaned off pressors. He was extubated and taken to PACU on BiPAP due to low sats while resting. This is likely due to undiagnosed COPD and possible sleep apnea. The patient will be admitted to the ICU for close monitoring overnight. All counts were complete and correct at the end of the case. JOSÉ MIGUEL / JESUS /[id number] DAIN
--- NOTE | 2019-12-19 18:43 | PCM.SURGPN ---
- General Info Date of Service: 12/19/19 Date of Surgery/Procedure: 12/19/19 POD#: 0 Functional Status: Reports: Pain Controlled, Other (BP improved from post op. HR within normal limits. NG with 100ml out. Denies nausea. Pain well controlled. UOP clear and adequate. ) - Review of Systems General: Reports: No Symptoms HEENT: Reports: No Symptoms Pulmonary: Reports: No Symptoms Cardiovascular: Reports: No Symptoms Gastrointestinal: Reports: No Symptoms Genitourinary: Reports: No Symptoms Musculoskeletal: Reports: No Symptoms Skin: Reports: No Symptoms - Patient Data Vitals - Most Recent: Last Vital Signs Temp 36.6 C 12/19/19 08:00 Pulse 94 12/19/19 12:50 Resp 13 12/19/19 12:50 BP 103/58 L 12/19/19 12:50 Pulse Ox 96 12/19/19 12:50 Weight - Most Recent: 97.069 kg I&O - Last 24 Hours: Intake & Output 12/19/19 12/19/19 12/19/19 06:59 14:59 22:59 Intake Total 1311 8500 270 Output Total 375 1280 1145 Balance 936 7220 -875 Lab Results Last 24 Hrs: Laboratory Results - last 24 hr 12/19/19 12/19/19 12/19/19 Range/Units 05:32 05:32 11:05 WBC 21.81 H (4.0-11.0) K/uL RBC 5.64 (4.50-5.90) M/uL Hgb 17.5 H (13.0-17.0) g/dL Hct 52.3 H (38.0-50.0) % MCV 92.7 (80.0-98.0) fL MCH 31.0 (27.0-32.0) pg MCHC 33.5 (31.0-37.0) g/dL RDW Std Deviation 45.7 (28.0-62.0) fl RDW Coeff of Jv 13 (11.0-15.0) % Plt Count 218 (150-400) K/uL MPV 10.20 (7.40-12.00) fL Neut % (Auto) 78.0 (48.0-80.0) % Lymph % (Auto) 11.4 L (16.0-40.0) % Fergus % (Auto) 10.4 (0.0-15.0) % Eos % (Auto) 0.1 (0.0-7.0) % Baso % (Auto) 0.1 (0.0-1.5) % Neut # (Auto) 17.0 H (1.4-5.7) K/uL Lymph # (Auto) 2.5 H (0.6-2.4) K/uL Fergus # (Auto) 2.3 H (0.0-0.8) K/uL Eos # (Auto) 0.0 (0.0-0.7) K/uL Baso # (Auto) 0.0 (0.0-0.1) K/uL Nucleated RBC % 0.0 /100WBC Nucleated RBCs # 0 K/uL Sodium 139 (136-148) mmol/L Potassium 4.2 (3.5-5.1) mmol/L Chloride 104 (98-107) mmol/L Carbon Dioxide 25.2 (21.0-32.0) mmol/L BUN 11 (7.0-18.0) mg/dL Creatinine 1.2 (0.8-1.3) mg/dL Est Cr Clr Drug Dosing 70.97 mL/min Estimated GFR (MDRD) > 60.0 ml/min Glucose 116 H (74-106) mg/dL Calcium 8.7 (8.5-10.1) mg/dL Total Bilirubin 1.2 H (0.2-1.0) mg/dL AST 17 (15-37) IU/L ALT 37 (14-63) IU/L Alkaline Phosphatase 68 (46-116) U/L Total Protein 6.7 (6.4-8.2) g/dL Albumin 3.0 L (3.4-5.0) g/dL Globulin 3.7 (2.6-4.0) g/dL Albumin/Globulin Ratio 0.8 L (0.9-1.6) Blood Type O NEGATIVE Antibody Screen NEGATIVE Crossmatch See Detail Lonnie Results Last 24 Hrs: Microbiology 12/19/19 10:00 Gram Stain - Preliminary Gallbladder Fluid - Bile 12/18/19 07:12 Aerobic Blood Culture - Preliminary Blood NO GROWTH AFTER 1 DAY Anaerobic Blood Culture - Final 12/18/19 06:30 Aerobic Blood Culture - Preliminary Blood NO GROWTH AFTER 1 DAY Anaerobic Blood Culture - Preliminary NO GROWTH AFTER 1 DAY Med Orders - Current: Current Medications Hydrocodone Bitart/Acetaminophen ([place] 325-5 Mg) 2 tab PO Q4H PRN PRN Reason: Pain (moderate 4-6) Albuterol/Ipratropium (Duoneb 3.0-0.5 Mg/3 Ml) 3 ml NEB Q6HRRT PRN PRN Reason: Wheezing Cyclobenzaprine HCl (Flexeril) 10 mg PO BID [facility] Diphenhydramine HCl (Benadryl) 50 mg IVPUSH Q4H PRN PRN Reason: Itching Sodium Chloride (Normal Saline) 1,000 mls @ 999 mls/hr IV ASDIRECTED [facility] Last Admin: 12/18/19 04:47 Dose: 999 mls/hr Lactated Ringer's (Ringers, Lactated) 1,000 mls @ 999 mls/hr IV ASDIRECTED [facility] Last Admin: 12/18/19 07:53 Dose: 999 mls/hr Lactated Ringer's (Ringers, Lactated) 1,000 mls @ 125 mls/hr IV ASDIRECTED [facility] Last Admin: 12/19/19 00:16 Dose: 125 mls/hr Piperacillin Sod/Tazobactam (Sod 3.375 gm/ Sodium Chloride) 50 mls @ 100 mls/ hr IV Q6H [facility] Last Admin: 12/19/19 15:24 Dose: 100 mls/hr Ketorolac Tromethamine (Toradol) 15 mg IVPUSH Q6H PRN PRN Reason: Abdominal Pain Stop: 12/24/19 12:26 Last Admin: 12/19/19 17:31 Dose: 15 mg Morphine Sulfate (Morphine) 4 mg IVPUSH Q2H PRN PRN Reason: Pain (severe 7-10) Last Admin: 12/19/19 15:23 Dose: 4 mg Nicotine (Habitrol) 14 mg TRDERM DAILY [facility] Last Admin: 12/19/19 09:09 Dose: Not Given Ondansetron HCl (Zofran) 4 mg IVPUSH Q6H PRN PRN Reason: Nausea/Vomiting Sodium Chloride (Saline Flush) 10 ml FLUSH ASDIRECTED PRN PRN Reason: Keep Vein Open Sodium Chloride (Saline Flush) 2.5 ml FLUSH ASDIRECTED PRN PRN Reason: Keep Vein Open Sodium Chloride (Normal Saline) 10 ml IV ASDIRECTED PRN PRN Reason: IV Use Discontinued Medications Acetaminophen (Tylenol) 650 mg PO Q6H PRN PRN Reason: Pain (mild 1-3) Al Hydroxide/Mg Hydroxide (Mag-Al Plus) 30 ml PO ONETIME ONE Stop: 12/18/19 04:09 Last Admin: 12/18/19 04:15 Dose: 30 ml Albuterol (Proventil Neb Soln) 2.5 mg NEB ONETIME PRN PRN Reason: Wheezing Atropine Sulfate (Atropine 0.1 Mg/Ml) 0.5 mg IVPUSH ASDIRECTED PRN PRN Reason: Hypo-perfusion Atropine Sulfate (Atropine 0.1 Mg/Ml) 1 mg IVPUSH ASDIRECTED PRN PRN Reason: Hypo-Perfusion Bupivacaine HCl (Marcaine 0.5%) Confirm Administered Dose 30 ml .ROUTE .STK-MED ONE Stop: 12/19/19 07:52 Bupivacaine HCl (Marcaine 0.5%) Confirm Administered Dose 120 ml .ROUTE .STK- MED ONE Stop: 12/19/19 08:03 Bupivacaine HCl/Epinephrine Bitart (Marcaine 0.25%/Epinephrine 1:200,000) Confirm Administered Dose 20 ml .ROUTE .STK-MED ONE Stop: 12/19/19 13:13 Dexamethasone (Dexamethasone) Confirm Administered Dose 20 mg .ROUTE .STK-MED ONE Stop: 12/19/19 10:14 Dextrose/Water (Dextrose 50% In Water) 50 ml IVPUSH ASDIRECTED PRN PRN Reason: Hypoglycemia Epinephrine HCl (Epinephrine 1:10,000) 1 mg IVPUSH ASDIRECTED PRN PRN Reason: ACLS Guidelines Famotidine (Pepcid) 20 mg IVPUSH ONETIME ONE Stop: 12/18/19 04:09 Last Admin: 12/18/19 04:15 Dose: 20 mg Fentanyl (Sublimaze) Confirm Administered Dose 250 mcg .ROUTE .STK-MED ONE Stop: 12/19/19 08:44 Fentanyl (Sublimaze) 50 - 100 mcg IVPUSH Q5M PRN PRN Reason: Pain Hydromorphone HCl (Dilaudid) Confirm Administered Dose 2 mg .ROUTE .STK-MED ONE Stop: 12/19/19 09:41 Hydromorphone HCl (Dilaudid) 0.5 mg IVPUSH .Q10MIN PRN PRN Reason: Pain Piperacillin Sod/Tazobactam (Sod 4.5 gm/ Sodium Chloride) 100 mls @ 100 mls/hr IV ONETIME ONE Stop: 12/18/19 07:14 Last Admin: 12/18/19 06:54 Dose: 100 mls/hr Acetaminophen (Ofirmev) Confirm Administered Dose 100 mls @ as directed .ROUTE .STK-MED ONE Stop: 12/19/19 10:37 Iopamidol (Isovue-370 (76%)) 100 ml IVPUSH ONETIME STA Stop: 12/18/19 05:14 Last Admin: 12/18/19 05:38 Dose: 100 ml Ketamine HCl (Ketalar) Confirm Administered Dose 500 mg .ROUTE .STK-MED ONE Stop: 12/19/19 10:33 Lidocaine (Xylocaine-Mpf 2%) Confirm Administered Dose 5 ml .ROUTE .STK-MED ONE Stop: 12/19/19 08:44 Midazolam HCl (Versed 1 Mg/Ml) Confirm Administered Dose 2 mg .ROUTE .STK-MED ONE Stop: 12/19/19 08:44 Morphine Sulfate (Morphine) 8 mg IVPUSH ONETIME ONE Stop: 12/18/19 06:08 Last Admin: 12/18/19 06:13 Dose: 8 mg Morphine Sulfate (Morphine) 4 mg IVPUSH ONETIME ONE Stop: 12/18/19 06:52 Last Admin: 12/18/19 07:02 Dose: 4 mg Naloxone HCl (Narcan) 0.1 mg IVPUSH ASDIRECTED PRN PRN Reason: Respiratory Depression Ondansetron HCl (Zofran) 4 mg IVPUSH ONETIME ONE Stop: 12/18/19 06:09 Last Admin: 12/18/19 06:14 Dose: 4 mg Ondansetron HCl (Zofran) Confirm Administered Dose 4 mg .ROUTE .STK-MED ONE Stop: 12/19/19 08:44 Phenylephrine HCl (Phenylephrine In Ns 100 Mcg/Ml) Confirm Administered Dose 1 mg .ROUTE .STK-MED ONE Stop: 12/19/19 09:09 Propofol (Diprivan 20 Ml) Confirm Administered Dose 200 mg .ROUTE .STK-MED ONE Stop: 12/19/19 08:44 Rocuronium [place] (Zemuron) Confirm Administered Dose 100 mg .ROUTE .STK-MED ONE Stop: 12/19/19 08:44 Sugammadex Sodium (Bridion) Confirm Administered Dose 200 mg .ROUTE .STK-MED ONE Stop: 12/19/19 10:37 Vasopressin (Vasopressin) Confirm Administered Dose 20 units .ROUTE .STK-MED ONE Stop: 12/19/19 11:24 - Exam Wound/Incisions: Healing Well, Dressing Dry and Intact, No Drainage General: Alert, Oriented, Cooperative HEENT: Pupils Equal, Pupils Reactive Lungs: Clear to Auscultation, Normal Respiratory Effort Cardiovascular: Regular Rate, Regular Rhythm GI/Abdominal Exam: Soft, Non-Tender, No Mass, Distended Extremities: Normal Inspection Skin: Warm, Dry, Intact Sepsis Event Note - Evaluation Sepsis Screening Result: No Definite Risk - Focused Exam Vital Signs: Vital Signs Temp Pulse Resp BP Pulse Ox Pulse Ox 12/19/19 12:50 94 13 103/58 L 96 12/19/19 12:45 95 14 99/58 L 98 12/19/19 12:40 97 12 99/56 L 95 12/19/19 12:35 97 10 L 103/63 96 12/19/19 12:30 96 14 99/55 L 95 12/19/19 12:25 98 17 109/52 L 96 12/19/19 12:20 97 17 100/62 96 12/19/19 12:15 96 16 108/85 97 12/19/19 12:10 91 14 93/55 L 97 12/19/19 12:05 88 14 91/51 L 100 12/19/19 08:04 96 12/19/19 08:00 36.6 C 90 16 120/74 92 L Date Exam was Performed: 12/19/19 Time Exam was Performed: 18:35 - Problem List & Annotations (1) Nephrolithiasis SNOMED Code(s): 47097418 Code(s): N20.0 - CALCULUS OF KIDNEY Status: Acute Current Visit: Yes (2) Polycythemia secondary to smoking SNOMED Code(s): 60516289 Code(s): D75.1 - SECONDARY POLYCYTHEMIA Status: Acute Current Visit: Yes (3) Cholecystitis SNOMED Code(s): 84885500 Code(s): K81.9 - CHOLECYSTITIS, UNSPECIFIED Status: Acute Current Visit: Yes (4) Dehydration SNOMED Code(s): 83811999 Code(s): E86.0 - DEHYDRATION Status: Acute Current Visit: Yes - Problem List Review Problem List Initiated/Reviewed/Updated: Yes - My Orders Last 24 Hours: Active Orders 24 hr Category Date Time Status Patient Status [ADT] Routine ADT 12/19/19 12:11 Active Blood Glucose Check, Bedside [RC] PRN Care 12/19/19 11:21 Inactive Cardiac Monitoring [RC] Q8H Care 12/19/19 12:17 Active NG [Gastrointestinal Tube Mgmt] [RC] Q4H Care 12/19/19 12:20 Active Notify Provider Vital Signs [RC] ASDIRECTED Care 12/19/19 11:21 Inactive Overnight Pulse Oximetry [RC] Click to Edit Care 12/19/19 12:17 Active Oxygen Therapy [RC] PRN Care 12/19/19 11:21 Inactive RT Aerosol Therapy [RC] ASDIRECTED Care 12/19/19 11:21 Inactive RT Aerosol Therapy [RC] ASDIRECTED Care 12/19/19 11:21 Inactive RT Aerosol Therapy [RC] ASDIRECTED Care 12/19/19 11:21 Inactive NPO [Nothing Per Oral Diet] [DIET] Diet 12/19/19 Dinner Ordered CBC W/O DIFF,HEMOGRAM [HEME] AM Lab 12/20/19 05:11 Ordered CBC W/O DIFF,HEMOGRAM [HEME] AM Lab 12/21/19 05:11 Ordered CBC W/O DIFF,HEMOGRAM [HEME] AM Lab 12/22/19 05:11 Ordered CMP [COMPREHENSIVE METABOLIC PN,CMP] [CHEM] AM Lab 12/20/19 05:11 Ordered CMP [COMPREHENSIVE METABOLIC PN,CMP] [CHEM] AM Lab 12/21/19 05:11 Ordered CULTURE WOUND [RM] Routine Lab 12/19/19 10:00 Results GRAM STAIN [RM] Routine Lab 12/19/19 10:00 Results RED BLOOD CELLS LP [BBK] Routine Lab 12/19/19 11:05 Results TYPE AND SCREEN [BBK] Routine Lab 12/19/19 11:05 Results Cyclobenzaprine [Flexeril] Med 12/19/19 21:00 Active 10 mg PO BID Ketorolac [Toradol] Med 12/19/19 12:25 Active 15 mg IVPUSH Q6H PRN Piperacillin/Tazobactam [Piperacil-Tazobact] 3.375 gm Med 12/18/19 20:00 Active Sodium Chloride 0.9% [Normal Saline] 50 ml IV Q6H BiPAP [RESPCARE] Routine Ot 12/19/19 12:10 Active NG [Nasogastric Orogastric Tube Removal] [OM.PC] Oth 12/19/19 18:34 Ordered Routine Pulse Oximetry Continuous Monitoring [OM.PC] Routine Ot 12/19/19 12:17 Ordered Medication Orders Hydrocodone Bitart/Acetaminophen ([place] 325-5 Mg) 2 tab PO Q4H PRN PRN Reason: Pain (moderate 4-6) Albuterol/Ipratropium (Duoneb 3.0-0.5 Mg/3 Ml) 3 ml NEB Q6HRRT PRN PRN Reason: Wheezing Cyclobenzaprine HCl (Flexeril) 10 mg PO BID [facility] Diphenhydramine HCl (Benadryl) 50 mg IVPUSH Q4H PRN PRN Reason: Itching Sodium Chloride (Normal Saline) 1,000 mls @ 999 mls/hr IV ASDIRECTED [facility] Last Admin: 12/18/19 04:47 Dose: 999 mls/hr Lactated Ringer's (Ringers, Lactated) 1,000 mls @ 999 mls/hr IV ASDIRECTED [facility] Last Admin: 12/18/19 07:53 Dose: 999 mls/hr Lactated Ringer's (Ringers, Lactated) 1,000 mls @ 125 mls/hr IV ASDIRECTED [facility] Last Admin: 12/19/19 00:16 Dose: 125 mls/hr Infusion: 12/18/19 22:07 Dose: 125 mls/hr Admin: 12/18/19 14:07 Dose: 125 mls/hr Piperacillin Sod/Tazobactam (Sod 3.375 gm/ Sodium Chloride) 50 mls @ 100 mls/ hr IV Q6H [facility] Last Admin: 12/19/19 15:24 Dose: 100 mls/hr Infusion: 12/19/19 08:43 Dose: 100 mls/hr Admin: 12/19/19 08:13 Dose: 100 mls/hr Infusion: 12/19/19 02:04 Dose: 100 mls/hr Admin: 12/19/19 01:34 Dose: 100 mls/hr Infusion: 12/18/19 20:19 Dose: 100 mls/hr Admin: 12/18/19 19:49 Dose: 100 mls/hr Ketorolac Tromethamine (Toradol) 15 mg IVPUSH Q6H PRN PRN Reason: Abdominal Pain Stop: 12/24/19 12:26 Last Admin: 12/19/19 17:31 Dose: 15 mg Morphine Sulfate (Morphine) 4 mg IVPUSH Q2H PRN PRN Reason: Pain (severe 7-10) Last Admin: 12/19/19 15:23 Dose: 4 mg Admin: 12/18/19 20:03 Dose: 4 mg Nicotine (Habitrol) 14 mg TRDERM DAILY [facility] Last Admin: 12/19/19 09:09 Dose: Admin: 12/18/19 11:26 Dose: Not Given Ondansetron HCl (Zofran) 4 mg IVPUSH Q6H PRN PRN Reason: Nausea/Vomiting Sodium Chloride (Saline Flush) 10 ml FLUSH ASDIRECTED PRN PRN Reason: Keep Vein Open Sodium Chloride (Saline Flush) 2.5 ml FLUSH ASDIRECTED PRN PRN Reason: Keep Vein Open Sodium Chloride (Normal Saline) 10 ml IV ASDIRECTED PRN PRN Reason: IV Use - Plan Plan (Free Text/Narrative):: Pain: IV morphine. po flexeril 10mg BID cam[facility]. Prn norco CV/Pulm: Patient using IS with nurse when I arrived. Sats when laying flat were 89%. Patient boosted in bed. Sats unchanged but patient comfortable. BiPAP to be used when sleeping. Likely has undiagnosed YANNA and COPD. Nicotine patch due to tobacco abuse. GI: NPO except ice chips and sips with meds. NG removed. Drain with 70ml serosanguinous output. Likely advance diet to clears in am. Renal: IVF LR @ 125ml/hr. UOP adequate. Keep higgins for tonight. Will likely remove tomorrow. CMP in am. ID: Patient had temp of 101F throughout case. HR elevated during case and on pressors. Patient given 4L of fluid during case. Preliminary culture from gallbladder fluid showing gram neg rods and WBCs. Likely septic due to gangrenous cholecystitis. Blood cultures drawn. No signs of sepsis at this point. Will continue zosyn. CBC in am. Heme: 400ml blood loss. Polycythemia pre-op likely due to smoking and YANNA. Will recheck labs in am. baby asa and chemical dvt px tomorrow. Px: SCDs
[2019-12-19] MEDS: Acetaminophen/HYDROcodone 325-5 MG Tab PO PRN (20:56)
[2019-12-19] MEDS: Cyclobenzaprine 10 MG Tab PO SCH (20:56)
[2019-12-20] MEDS: Piperacillin/Tazobactam 3.375 GM in Sodium Chloride 0.9% 50 ML IV SCH ×4 (02:08→20:42)
[2019-12-20] MEDS: Lactated Ringers 1,000 ML IV SCH (03:32)
[2019-12-20] MEDS: Acetaminophen/HYDROcodone 325-5 MG Tab PO PRN ×3 (06:12→23:25)
[2019-12-20 07:08] LABS: BLOOD UREA NITROGEN,BUN 16 mg/dL (7.0-18.0); CARBON DIOXIDE,CO2 27.6 mmol/L (21.0-32.0); CHLORIDE,CL 108 mmol/L (98-107); GLUCOSE RANDOM 125 mg/dL (74-106); POTASSIUM,K 4.3 mmol/L (3.5-5.1); SODIUM,NA 142 mmol/L (136-148)
--- NOTE | 2019-12-20 07:48 | PCM48HPAN ---
Post Anesthesia Note - EVALUATION WITHIN 48HRS OF ANESTHETIC Vital Signs in Normal Range: Yes Patient Participated in Evaluation: Yes Respiratory Function Stable: Yes Airway Patent: Yes Cardiovascular Function Stable: Yes Hydration Status Stable: Yes Pain Control Satisfactory: Yes Nausea and Vomiting Control Satisfactory: Yes Mental Status Recovered: Yes Vital Signs: Last Vital Signs Temp 36.4 C 12/20/19 06:00 Pulse 94 12/19/19 12:50 Resp 14 12/20/19 07:00 BP 115/75 12/20/19 07:00 Pulse Ox 92 L 12/20/19 07:00
[2019-12-20] MEDS: Cyclobenzaprine 10 MG Tab PO SCH ×2 (08:38→20:43)
[2019-12-20] MEDS: Nicotine 14 MG/24 Hr Patch TRDERM SCH (08:39)
--- NOTE | 2019-12-20 09:21 | PN ---
THC Physician - Brief Progress [id number]/27/2020 09:07[facility] Perez Simba monsivais, [place] - ARAMISN (PEGGY) - ARAMISN LUISALVAREZ VERDUGOHernanDate of Service 12/20/2019 09:07HPI/Events o f Note EICU progress note:D/W RN at bedsidePatient is improved greatly from yesterday pm, now up in c hair on nasal cannula.Using IS.POD 1 Open Cholecystectomy with post op respiratory failure.Labs revie camera:V/S: HR 76, RR 16, Sp02 86-90%, BP 111/65Hb 14.3EICU assessment:POD 1 open cholePost op respiratory failure from fluid overloadHypoxemic respiratory failure, post op, likely from inflammat ory markers and surgery near diaphragm. Much improved EICU recs:Surgery followingContinue pulmonary toiletingIncrease activity as toleratedIncentive spirometryGi/DVT prophPer bedside we are starting cl ear liquids on him today.Maintain spo2 > 88%May need Echocardiogram if continues to have fluid overlo ad status, unsure of status outpatient if he has had stress testing and / or echocardiograms, but wit h elevated bmi, and middle aged male, would have low threshhold for testing.Please call as needed.Int erventions Major-Respiratory failure - evaluation and managementMinor-Communication with other health care providers and/or family, Routine modifications to care plan (e.g. PRN medications for pain, feve r)
--- NOTE | 2019-12-20 09:47 | PCM.SURGPN ---
<BrendaInocentel M - Last Filed: 12/20/19 10:02> - General Info Date of Service: 12/20/19 Date of Surgery/Procedure: 12/19/19 POD#: 1 Functional Status: Reports: Other (Pain well controlled. Vitals signs stable overnight. No fevers, chills, SOB, n/v/d. Denies passing gas. James drain had 110 cc of output overnight.) - Patient Data Vitals - Most Recent: Last Vital Signs Temp 98.2 F 12/20/19 08:00 Pulse 94 12/19/19 12:50 Resp 17 12/20/19 09:00 BP 101/66 12/20/19 09:00 Pulse Ox 92 L 12/20/19 09:00 Weight - Most Recent: 97.069 kg I&O - Last 24 Hours: Intake & Output 12/19/19 12/20/19 12/20/19 22:59 06:59 14:59 Intake Total 320 1831 50 Output Total 1145 840 Balance -825 991 50 Lab Results Last 24 Hrs: Laboratory Results - last 24 hr 12/19/19 12/20/19 12/20/19 Range/Units 11:05 06:13 06:13 WBC 19.53 H (4.0-11.0) K/uL RBC 4.73 (4.50-5.90) M/uL Hgb 14.3 (13.0-17.0) g/dL Hct 43.9 (38.0-50.0) % MCV 92.8 (80.0-98.0) fL MCH 30.2 (27.0-32.0) pg MCHC 32.6 (31.0-37.0) g/dL RDW Std Deviation 45.7 (28.0-62.0) fl RDW Coeff of Jv 13 (11.0-15.0) % Plt Count 191 (150-400) K/uL MPV 10.00 (7.40-12.00) fL Nucleated RBC % 0.0 /100WBC Nucleated RBCs # 0 K/uL Sodium 142 (136-148) mmol/L Potassium 4.3 (3.5-5.1) mmol/L Chloride 108 H (98-107) mmol/L Carbon Dioxide 27.6 (21.0-32.0) mmol/L BUN 16 (7.0-18.0) mg/dL Creatinine 1.0 (0.8-1.3) mg/dL Est Cr Clr Drug Dosing 85.17 mL/min Estimated GFR (MDRD) > 60.0 ml/min Glucose 125 H (74-106) mg/dL Calcium 8.1 L (8.5-10.1) mg/dL Total Bilirubin 0.5 (0.2-1.0) mg/dL AST 34 (15-37) IU/L ALT 72 H (14-63) IU/L Alkaline Phosphatase 55 (46-116) U/L Total Protein 5.8 L (6.4-8.2) g/dL Albumin 2.3 L (3.4-5.0) g/dL Globulin 3.5 (2.6-4.0) g/dL Albumin/Globulin Ratio 0.7 L (0.9-1.6) Blood Type O NEGATIVE Antibody Screen NEGATIVE Crossmatch See Detail Lonnie Results Last 24 Hrs: Microbiology 12/18/19 07:12 Aerobic Blood Culture - Preliminary Blood NO GROWTH AFTER 2 DAYS Anaerobic Blood Culture - Final 12/18/19 06:30 Aerobic Blood Culture - Preliminary Blood NO GROWTH AFTER 2 DAYS Anaerobic Blood Culture - Preliminary NO GROWTH AFTER 2 DAYS 12/19/19 10:00 Gram Stain - Preliminary Gallbladder Fluid - Bile Med Orders - Current: Current Medications Hydrocodone Bitart/Acetaminophen (Oliver 325-5 Mg) 2 tab PO Q4H PRN PRN Reason: Pain (moderate 4-6) Last Admin: 12/20/19 06:12 Dose: 2 tab Albuterol/Ipratropium (Duoneb 3.0-0.5 Mg/3 Ml) 3 ml NEB Q6HRRT PRN PRN Reason: Wheezing Cyclobenzaprine HCl (Flexeril) 10 mg PO BID [facility] Last Admin: 12/20/19 08:38 Dose: 10 mg Diphenhydramine HCl (Benadryl) 50 mg IVPUSH Q4H PRN PRN Reason: Itching Sodium Chloride (Normal Saline) 1,000 mls @ 999 mls/hr IV ASDIRECTED LALITA Last Admin: 12/18/19 04:47 Dose: 999 mls/hr Lactated Ringer's (Ringers, Lactated) 1,000 mls @ 999 mls/hr IV ASDIRECTED [facility] Last Admin: 12/18/19 07:53 Dose: 999 mls/hr Lactated Ringer's (Ringers, Lactated) 1,000 mls @ 125 mls/hr IV ASDIRECTED [facility] Last Admin: 12/20/19 03:32 Dose: 125 mls/hr Piperacillin Sod/Tazobactam (Sod 3.375 gm/ Sodium Chloride) 50 mls @ 100 mls/ hr IV Q6H [facility] Last Admin: 12/20/19 08:00 Dose: 100 mls/hr Ketorolac Tromethamine (Toradol) 15 mg IVPUSH Q6H PRN PRN Reason: Abdominal Pain Stop: 12/24/19 12:26 Last Admin: 12/19/19 17:31 Dose: 15 mg Morphine Sulfate (Morphine) 4 mg IVPUSH Q2H PRN PRN Reason: Pain (severe 7-10) Last Admin: 12/19/19 15:23 Dose: 4 mg Nicotine (Habitrol) 14 mg TRDERM DAILY [facility] Last Admin: 12/20/19 08:39 Dose: Not Given Ondansetron HCl (Zofran) 4 mg IVPUSH Q6H PRN PRN Reason: Nausea/Vomiting Sodium Chloride (Saline Flush) 10 ml FLUSH ASDIRECTED PRN PRN Reason: Keep Vein Open Sodium Chloride (Saline Flush) 2.5 ml FLUSH ASDIRECTED PRN PRN Reason: Keep Vein Open Sodium Chloride (Normal Saline) 10 ml IV ASDIRECTED PRN PRN Reason: IV Use Discontinued Medications Acetaminophen (Tylenol) 650 mg PO Q6H PRN PRN Reason: Pain (mild 1-3) Al Hydroxide/Mg Hydroxide (Mag-Al Plus) 30 ml PO ONETIME ONE Stop: 12/18/19 04:09 Last Admin: 12/18/19 04:15 Dose: 30 ml Albuterol (Proventil Neb Soln) 2.5 mg NEB ONETIME PRN PRN Reason: Wheezing Atropine Sulfate (Atropine 0.1 Mg/Ml) 0.5 mg IVPUSH ASDIRECTED PRN PRN Reason: Hypo-perfusion Atropine Sulfate (Atropine 0.1 Mg/Ml) 1 mg IVPUSH ASDIRECTED PRN PRN Reason: Hypo-Perfusion Bupivacaine HCl (Marcaine 0.5%) Confirm Administered Dose 30 ml .ROUTE .STK-MED ONE Stop: 12/19/19 07:52 Bupivacaine HCl (Marcaine 0.5%) Confirm Administered Dose 120 ml .ROUTE .STK- MED ONE Stop: 12/19/19 08:03 Bupivacaine HCl/Epinephrine Bitart (Marcaine 0.25%/Epinephrine 1:200,000) Confirm Administered Dose 20 ml .ROUTE .STK-MED ONE Stop: 12/19/19 13:13 Dexamethasone (Dexamethasone) Confirm Administered Dose 20 mg .ROUTE .STK-MED ONE Stop: 12/19/19 10:14 Dextrose/Water (Dextrose 50% In Water) 50 ml IVPUSH ASDIRECTED PRN PRN Reason: Hypoglycemia Epinephrine HCl (Epinephrine 1:10,000) 1 mg IVPUSH ASDIRECTED PRN PRN Reason: ACLS Guidelines Famotidine (Pepcid) 20 mg IVPUSH ONETIME ONE Stop: 12/18/19 04:09 Last Admin: 12/18/19 04:15 Dose: 20 mg Fentanyl (Sublimaze) Confirm Administered Dose 250 mcg .ROUTE .STK-MED ONE Stop: 12/19/19 08:44 Fentanyl (Sublimaze) 50 - 100 mcg IVPUSH Q5M PRN PRN Reason: Pain Hydromorphone HCl (Dilaudid) Confirm Administered Dose 2 mg .ROUTE .STK-MED ONE Stop: 12/19/19 09:41 Hydromorphone HCl (Dilaudid) 0.5 mg IVPUSH .Q10MIN PRN PRN Reason: Pain Piperacillin Sod/Tazobactam (Sod 4.5 gm/ Sodium Chloride) 100 mls @ 100 mls/hr IV ONETIME ONE Stop: 12/18/19 07:14 Last Admin: 12/18/19 06:54 Dose: 100 mls/hr Acetaminophen (Ofirmev) Confirm Administered Dose 100 mls @ as directed .ROUTE .STK-MED ONE Stop: 12/19/19 10:37 Iopamidol (Isovue-370 (76%)) 100 ml IVPUSH ONETIME STA Stop: 12/18/19 05:14 Last Admin: 12/18/19 05:38 Dose: 100 ml Ketamine HCl (Ketalar) Confirm Administered Dose 500 mg .ROUTE .STK-MED ONE Stop: 12/19/19 10:33 Lidocaine (Xylocaine-Mpf 2%) Confirm Administered Dose 5 ml .ROUTE .STK-MED ONE Stop: 12/19/19 08:44 Midazolam HCl (Versed 1 Mg/Ml) Confirm Administered Dose 2 mg .ROUTE .STK-MED ONE Stop: 12/19/19 08:44 Morphine Sulfate (Morphine) 8 mg IVPUSH ONETIME ONE Stop: 12/18/19 06:08 Last Admin: 12/18/19 06:13 Dose: 8 mg Morphine Sulfate (Morphine) 4 mg IVPUSH ONETIME ONE Stop: 12/18/19 06:52 Last Admin: 12/18/19 07:02 Dose: 4 mg Naloxone HCl (Narcan) 0.1 mg IVPUSH ASDIRECTED PRN PRN Reason: Respiratory Depression Ondansetron HCl (Zofran) 4 mg IVPUSH ONETIME ONE Stop: 12/18/19 06:09 Last Admin: 12/18/19 06:14 Dose: 4 mg Ondansetron HCl (Zofran) Confirm Administered Dose 4 mg .ROUTE .STK-MED ONE Stop: 12/19/19 08:44 Phenylephrine HCl (Phenylephrine In Ns 100 Mcg/Ml) Confirm Administered Dose 1 mg .ROUTE .STK-MED ONE Stop: 12/19/19 09:09 Propofol (Diprivan 20 Ml) Confirm Administered Dose 200 mg .ROUTE .STK-MED ONE Stop: 12/19/19 08:44 Rocuronium [place] (Zemuron) Confirm Administered Dose 100 mg .ROUTE .STK-MED ONE Stop: 12/19/19 08:44 Sugammadex Sodium (Bridion) Confirm Administered Dose 200 mg .ROUTE .STK-MED ONE Stop: 12/19/19 10:37 Vasopressin (Vasopressin) Confirm Administered Dose 20 units .ROUTE .STK-MED ONE Stop: 12/19/19 11:24 - Exam Wound/Incisions: Dressing Dry and Intact, No Drainage Quality Assessment: Supplemental Oxygen General: Alert, Oriented, Cooperative, No Acute Distress HEENT: EOMI Lungs: Other (mild crackles in lung bases bilaterally) Cardiovascular: Regular Rate, Regular Rhythm GI/Abdominal Exam: Soft, Non-Tender, No Distention, No Mass Extremities: Other (SCD's on) Sepsis Event Note - Evaluation Sepsis Screening Result: No Definite Risk - Focused Exam Vital Signs: Vital Signs Temp Resp BP Pulse Ox 12/20/19 09:00 17 101/66 92 L 12/20/19 08:00 98.2 F 14 111/65 92 L 12/20/19 07:00 14 115/75 92 L 12/20/19 06:00 97.5 F 13 110/74 94 L 12/20/19 05:00 13 109/68 94 L 12/20/19 04:00 13 111/74 94 L 12/20/19 03:00 12 112/76 92 L 12/20/19 02:00 97.2 F 12 115/82 91 L 12/20/19 01:00 11 L 108/77 94 L 12/20/19 00:00 13 111/77 93 L 12/19/19 23:00 12 106/73 93 L 12/19/19 22:00 13 119/78 92 L Date Exam was Performed: 12/20/19 Time Exam was Performed: 10:02 - Problem List Review Problem List Initiated/Reviewed/Updated: Yes - My Orders Last 24 Hours: Active Orders 24 hr Category Date Time Status Patient Status [ADT] Routine ADT 12/19/19 12:11 Active Blood Glucose Check, Bedside [RC] PRN Care 12/19/19 11:21 Inactive Cardiac Monitoring [RC] Q8H Care 12/19/19 12:17 Active Notify Provider Vital Signs [RC] ASDIRECTED Care 12/19/19 11:21 Inactive Overnight Pulse Oximetry [RC] Click to Edit Care 12/19/19 12:17 Active Oxygen Therapy [RC] PRN Care 12/19/19 11:21 Inactive RT Aerosol Therapy [RC] ASDIRECTED Care 12/19/19 11:21 Inactive RT Aerosol Therapy [RC] ASDIRECTED Care 12/19/19 11:21 Inactive RT Aerosol Therapy [RC] ASDIRECTED Care 12/19/19 11:21 Inactive Remove Horowitz Catheter [Urinary Catheter Removal] [RC] Care 12/20/19 07:46 Active Per Unit Routine Clear Liquid Diet [DIET] Diet 12/20/19 Lunch Active NPO [Nothing Per Oral Diet] [DIET] Diet 12/19/19 Dinner Active CBC W/O DIFF,HEMOGRAM [HEME] AM Lab 12/21/19 05:11 Ordered CBC W/O DIFF,HEMOGRAM [HEME] AM Lab 12/22/19 05:11 Ordered CMP [COMPREHENSIVE METABOLIC PN,CMP] [CHEM] AM Lab 12/21/19 05:11 Ordered CULTURE WOUND [RM] Routine Lab 12/19/19 10:00 Results GRAM STAIN [RM] Routine Lab 12/19/19 10:00 Results RED BLOOD CELLS LP [BBK] Routine Lab 12/19/19 11:05 Results TYPE AND SCREEN [BBK] Routine Lab 12/19/19 11:05 Results Cyclobenzaprine [Flexeril] Med 12/19/19 21:00 Active 10 mg PO BID Ketorolac [Toradol] Med 12/19/19 12:25 Active 15 mg IVPUSH Q6H PRN BiPAP [RESPCARE] Routine Oth 12/19/19 12:10 Active NG [Nasogastric Orogastric Tube Removal] [OM.PC] Oth 12/19/19 18:34 Ordered Routine Pulse Oximetry Continuous Monitoring [OM.PC] Routine Oth 12/19/19 12:17 Ordered Medication Orders Hydrocodone Bitart/Acetaminophen (Oliver 325-5 Mg) 2 tab PO Q4H PRN PRN Reason: Pain (moderate 4-6) Last Admin: 12/20/19 06:12 Dose: 2 tab Admin: 12/19/19 20:56 Dose: 2 tab Albuterol/Ipratropium (Duoneb 3.0-0.5 Mg/3 Ml) 3 ml NEB Q6HRRT PRN PRN Reason: Wheezing Cyclobenzaprine HCl (Flexeril) 10 mg PO BID [facility] Last Admin: 12/20/19 08:38 Dose: 10 mg Admin: 12/19/19 20:56 Dose: 10 mg Diphenhydramine HCl (Benadryl) 50 mg IVPUSH Q4H PRN PRN Reason: Itching Sodium Chloride (Normal Saline) 1,000 mls @ 999 mls/hr IV ASDIRECTED [facility] Last Admin: 12/18/19 04:47 Dose: 999 mls/hr Lactated Ringer's (Ringers, Lactated) 1,000 mls @ 999 mls/hr IV ASDIRECTED [facility] Last Admin: 12/18/19 07:53 Dose: 999 mls/hr Lactated Ringer's (Ringers, Lactated) 1,000 mls @ 125 mls/hr IV ASDIRECTED [facility] Last Admin: 12/20/19 03:32 Dose: 125 mls/hr Infusion: 12/20/19 03:32 Dose: 125 mls/hr Admin: 12/19/19 20:00 Dose: 125 mls/hr Infusion: 12/19/19 08:16 Dose: 125 mls/hr Admin: 12/19/19 00:16 Dose: 125 mls/hr Infusion: 12/18/19 22:07 Dose: 125 mls/hr Admin: 12/18/19 14:07 Dose: 125 mls/hr Piperacillin Sod/Tazobactam (Sod 3.375 gm/ Sodium Chloride) 50 mls @ 100 mls/ hr IV Q6H [facility] Last Admin: 12/20/19 08:00 Dose: 100 mls/hr Infusion: 12/20/19 02:38 Dose: 100 mls/hr Admin: 12/20/19 02:08 Dose: 100 mls/hr Infusion: 12/19/19 21:31 Dose: 100 mls/hr Admin: 12/19/19 21:01 Dose: 100 mls/hr Infusion: 12/19/19 15:54 Dose: 100 mls/hr Admin: 12/19/19 15:24 Dose: 100 mls/hr Infusion: 12/19/19 08:43 Dose: 100 mls/hr Admin: 12/19/19 08:13 Dose: 100 mls/hr Infusion: 12/19/19 02:04 Dose: 100 mls/hr Admin: 12/19/19 01:34 Dose: 100 mls/hr Infusion: 12/18/19 20:19 Dose: 100 mls/hr Admin: 12/18/19 19:49 Dose: 100 mls/hr Ketorolac Tromethamine (Toradol) 15 mg IVPUSH Q6H PRN PRN Reason: Abdominal Pain Stop: 12/24/19 12:26 Last Admin: 12/19/19 17:31 Dose: 15 mg Morphine Sulfate (Morphine) 4 mg IVPUSH Q2H PRN PRN Reason: Pain (severe 7-10) Last Admin: 12/19/19 15:23 Dose: 4 mg Admin: 12/18/19 20:03 Dose: 4 mg Nicotine (Habitrol) 14 mg TRDERM DAILY [facility] Last Admin: 12/20/19 08:39 Dose: Not Given Admin: 12/19/19 09:09 Dose: Admin: 12/18/19 11:26 Dose: Not Given Ondansetron HCl (Zofran) 4 mg IVPUSH Q6H PRN PRN Reason: Nausea/Vomiting Sodium Chloride (Saline Flush) 10 ml FLUSH ASDIRECTED PRN PRN Reason: Keep Vein Open Sodium Chloride (Saline Flush) 2.5 ml FLUSH ASDIRECTED PRN PRN Reason: Keep Vein Open Sodium Chloride (Normal Saline) 10 ml IV ASDIRECTED PRN PRN Reason: IV Use - Assessment Assessment (Free Text/Narrative):: Assessment and Plan: 1. Acute cholecystitis S/P open cholecystectomy POD#1: - Vitals signs stable overnight. Pain currently well controlled on current regimen. Continue norco prn, morphine prn and scheduled flexeril. Advance diet to clear liquids today. Will consider advancing to soft diet this evening if tolerating well. Continue zosyn antibiotic. James drain output 110 cc overnight. Horowitz catheter discontinued. 2. Hypoxemic respiratory failure likely secondary to underlying COPD: - Continue supplemental oxygen as needed to maintain O2 sat > 88%. Continue incentive spirometry. Counselled on tobacco cessation and offered nicotine patch , however, patient refused at this time. When asleep, patient to be on BiPAP. 3. Leukocytosis secondary to #1, downtrending: - Will continue to monitor with next set of labs. 4. Polycythemia likely secondary to tobacco abuse and underlying COPD, resolved: - Will continue to monitor with next set of labs. 5. DVT prophylaxis with lovenox 40 subcut daily and baby aspirin. <Kay Eden - Last Filed: 12/20/19 14:15> - General Info POD#: 1 Functional Status: Reports: Pain Controlled, Tolerating Diet, Ambulating, Urinating - Review of Systems General: Reports: No Symptoms HEENT: Reports: No Symptoms Pulmonary: Reports: No Symptoms Cardiovascular: Reports: No Symptoms Gastrointestinal: Reports: Abdominal Pain (with movement ) Genitourinary: Reports: No Symptoms Musculoskeletal: Reports: No Symptoms Skin: Reports: No Symptoms - Patient Data Vitals - Most Recent: Last Vital Signs Temp 37 C 12/20/19 12:00 Pulse 94 12/19/19 12:50 Resp 17 12/20/19 13:00 BP 103/61 12/20/19 12:00 Pulse Ox 98 12/20/19 13:00 I&O - Last 24 Hours: Intake & Output 12/19/19 12/20/19 12/20/19 22:59 06:59 14:59 Intake Total 320 1831 563 Output Total 1145 840 Balance -825 991 563 Lab Results Last 24 Hrs: Laboratory Results - last 24 hr 12/20/19 12/20/19 Range/Units 06:13 06:13 WBC 19.53 H (4.0-11.0) K/uL RBC 4.73 (4.50-5.90) M/uL Hgb 14.3 (13.0-17.0) g/dL Hct 43.9 (38.0-50.0) % MCV 92.8 (80.0-98.0) fL MCH 30.2 (27.0-32.0) pg MCHC 32.6 (31.0-37.0) g/dL RDW Std Deviation 45.7 (28.0-62.0) fl RDW Coeff of Jv 13 (11.0-15.0) % Plt Count 191 (150-400) K/uL MPV 10.00 (7.40-12.00) fL Nucleated RBC % 0.0 /100WBC Nucleated RBCs # 0 K/uL Sodium 142 (136-148) mmol/L Potassium 4.3 (3.5-5.1) mmol/L Chloride 108 H (98-107) mmol/L Carbon Dioxide 27.6 (21.0-32.0) mmol/L BUN 16 (7.0-18.0) mg/dL Creatinine 1.0 (0.8-1.3) mg/dL Est Cr Clr Drug Dosing 85.17 mL/min Estimated GFR (MDRD) > 60.0 ml/min Glucose 125 H (74-106) mg/dL Calcium 8.1 L (8.5-10.1) mg/dL Total Bilirubin 0.5 (0.2-1.0) mg/dL AST 34 (15-37) IU/L ALT 72 H (14-63) IU/L Alkaline Phosphatase 55 (46-116) U/L Total Protein 5.8 L (6.4-8.2) g/dL Albumin 2.3 L (3.4-5.0) g/dL Globulin 3.5 (2.6-4.0) g/dL Albumin/Globulin Ratio 0.7 L (0.9-1.6) Lonnie Results Last 24 Hrs: Microbiology 12/19/19 10:00 Gram Stain - Final Gallbladder Fluid - Bile Wound Culture - Preliminary 12/18/19 07:12 Aerobic Blood Culture - Preliminary Blood NO GROWTH AFTER 2 DAYS Anaerobic Blood Culture - Final 12/18/19 06:30 Aerobic Blood Culture - Preliminary Blood NO GROWTH AFTER 2 DAYS Anaerobic Blood Culture - Preliminary NO GROWTH AFTER 2 DAYS Med Orders - Current: Current Medications Hydrocodone Bitart/Acetaminophen (Oliver 325-5 Mg) 2 tab PO Q4H PRN PRN Reason: Pain (moderate 4-6) Last Admin: 12/20/19 06:12 Dose: 2 tab Albuterol/Ipratropium (Duoneb 3.0-0.5 Mg/3 Ml) 3 ml NEB Q6HRRT PRN PRN Reason: Wheezing Aspirin (Aspirin) 81 mg PO DAILY [facility] Last Admin: 12/20/19 10:50 Dose: 81 mg Cyclobenzaprine HCl (Flexeril) 10 mg PO BID [facility] Last Admin: 12/20/19 08:38 Dose: 10 mg Diphenhydramine HCl (Benadryl) 50 mg IVPUSH Q4H PRN PRN Reason: Itching Enoxaparin Sodium (Lovenox) 40 mg SUBCUT Q24H [facility] Last Admin: 12/20/19 10:53 Dose: 40 mg Sodium Chloride (Normal Saline) 1,000 mls @ 999 mls/hr IV ASDIRECTED [facility] Last Admin: 12/18/19 04:47 Dose: 999 mls/hr Piperacillin Sod/Tazobactam (Sod 3.375 gm/ Sodium Chloride) 50 mls @ 100 mls/ hr IV Q6H [facility] Last Admin: 12/20/19 14:09 Dose: 100 mls/hr Ketorolac Tromethamine (Toradol) 15 mg IVPUSH Q6H PRN PRN Reason: Abdominal Pain Stop: 12/24/19 12:26 Last Admin: 12/20/19 09:50 Dose: 15 mg Morphine Sulfate (Morphine) 4 mg IVPUSH Q2H PRN PRN Reason: Pain (severe 7-10) Last Admin: 12/19/19 15:23 Dose: 4 mg Nicotine (Habitrol) 14 mg TRDERM DAILY [facility] Last Admin: 12/20/19 08:39 Dose: Not Given Ondansetron HCl (Zofran) 4 mg IVPUSH Q6H PRN PRN Reason: Nausea/Vomiting Sodium Chloride (Saline Flush) 10 ml FLUSH ASDIRECTED PRN PRN Reason: Keep Vein Open Sodium Chloride (Saline Flush) 2.5 ml FLUSH ASDIRECTED PRN PRN Reason: Keep Vein Open Sodium Chloride (Normal Saline) 10 ml IV ASDIRECTED PRN PRN Reason: IV Use Discontinued Medications Acetaminophen (Tylenol) 650 mg PO Q6H PRN PRN Reason: Pain (mild 1-3) Al Hydroxide/Mg Hydroxide (Mag-Al Plus) 30 ml PO ONETIME ONE Stop: 12/18/19 04:09 Last Admin: 12/18/19 04:15 Dose: 30 ml Albuterol (Proventil Neb Soln) 2.5 mg NEB ONETIME PRN PRN Reason: Wheezing Atropine Sulfate (Atropine 0.1 Mg/Ml) 0.5 mg IVPUSH ASDIRECTED PRN PRN Reason: Hypo-perfusion Atropine Sulfate (Atropine 0.1 Mg/Ml) 1 mg IVPUSH ASDIRECTED PRN PRN Reason: Hypo-Perfusion Bupivacaine HCl (Marcaine 0.5%) Confirm Administered Dose 30 ml .ROUTE .STK-MED ONE Stop: 12/19/19 07:52 Bupivacaine HCl (Marcaine 0.5%) Confirm Administered Dose 120 ml .ROUTE .STK- MED ONE Stop: 12/19/19 08:03 Bupivacaine HCl/Epinephrine Bitart (Marcaine 0.25%/Epinephrine 1:200,000) Confirm Administered Dose 20 ml .ROUTE .STK-MED ONE Stop: 12/19/19 13:13 Dexamethasone (Dexamethasone) Confirm Administered Dose 20 mg .ROUTE .STK-MED ONE Stop: 12/19/19 10:14 Dextrose/Water (Dextrose 50% In Water) 50 ml IVPUSH ASDIRECTED PRN PRN Reason: Hypoglycemia Epinephrine HCl (Epinephrine 1:10,000) 1 mg IVPUSH ASDIRECTED PRN PRN Reason: ACLS Guidelines Famotidine (Pepcid) 20 mg IVPUSH ONETIME ONE Stop: 12/18/19 04:09 Last Admin: 12/18/19 04:15 Dose: 20 mg Fentanyl (Sublimaze) Confirm Administered Dose 250 mcg .ROUTE .STK-MED ONE Stop: 12/19/19 08:44 Fentanyl (Sublimaze) 50 - 100 mcg IVPUSH Q5M PRN PRN Reason: Pain Hydromorphone HCl (Dilaudid) Confirm Administered Dose 2 mg .ROUTE .STK-MED ONE Stop: 12/19/19 09:41 Hydromorphone HCl (Dilaudid) 0.5 mg IVPUSH .Q10MIN PRN PRN Reason: Pain Piperacillin Sod/Tazobactam (Sod 4.5 gm/ Sodium Chloride) 100 mls @ 100 mls/hr IV ONETIME ONE Stop: 12/18/19 07:14 Last Admin: 12/18/19 06:54 Dose: 100 mls/hr Lactated Ringer's (Ringers, Lactated) 1,000 mls @ 999 mls/hr IV ASDIRECTED [facility] Last Admin: 12/18/19 07:53 Dose: 999 mls/hr Lactated Ringer's (Ringers, Lactated) 1,000 mls @ 125 mls/hr IV ASDIRECTED [facility] Last Admin: 12/20/19 03:32 Dose: 125 mls/hr Acetaminophen (Ofirmev) Confirm Administered Dose 100 mls @ as directed .ROUTE .STK-MED ONE Stop: 12/19/19 10:37 Iopamidol (Isovue-370 (76%)) 100 ml IVPUSH ONETIME STA Stop: 12/18/19 05:14 Last Admin: 12/18/19 05:38 Dose: 100 ml Ketamine HCl (Ketalar) Confirm Administered Dose 500 mg .ROUTE .STK-MED ONE Stop: 12/19/19 10:33 Lidocaine (Xylocaine-Mpf 2%) Confirm Administered Dose 5 ml .ROUTE .STK-MED ONE Stop: 12/19/19 08:44 Midazolam HCl (Versed 1 Mg/Ml) Confirm Administered Dose 2 mg .ROUTE .STK-MED ONE Stop: 12/19/19 08:44 Morphine Sulfate (Morphine) 8 mg IVPUSH ONETIME ONE Stop: 12/18/19 06:08 Last Admin: 12/18/19 06:13 Dose: 8 mg Morphine Sulfate (Morphine) 4 mg IVPUSH ONETIME ONE Stop: 12/18/19 06:52 Last Admin: 12/18/19 07:02 Dose: 4 mg Naloxone HCl (Narcan) 0.1 mg IVPUSH ASDIRECTED PRN PRN Reason: Respiratory Depression Ondansetron HCl (Zofran) 4 mg IVPUSH ONETIME ONE Stop: 12/18/19 06:09 Last Admin: 12/18/19 06:14 Dose: 4 mg Ondansetron HCl (Zofran) Confirm Administered Dose 4 mg .ROUTE .STK-MED ONE Stop: 12/19/19 08:44 Phenylephrine HCl (Phenylephrine In Ns 100 Mcg/Ml) Confirm Administered Dose 1 mg .ROUTE .STK-MED ONE Stop: 12/19/19 09:09 Propofol (Diprivan 20 Ml) Confirm Administered Dose 200 mg .ROUTE .STK-MED ONE Stop: 12/19/19 08:44 Rocuronium [place] (Zemuron) Confirm Administered Dose 100 mg .ROUTE .STK-MED ONE Stop: 12/19/19 08:44 Sugammadex Sodium (Bridion) Confirm Administered Dose 200 mg .ROUTE .STK-MED ONE Stop: 12/19/19 10:37 Vasopressin (Vasopressin) Confirm Administered Dose 20 units .ROUTE .STK-MED ONE Stop: 12/19/19 11:24 - Exam Wound/Incisions: Dressing Dry and Intact, No Drainage Quality Assessment: Supplemental Oxygen General: Alert, Oriented, Cooperative, No Acute Distress HEENT: EOMI Lungs: Normal Respiratory Effort, Other Cardiovascular: Regular Rate, Tachycardia GI/Abdominal Exam: Soft, Non-Tender, No Distention, No Mass Extremities: Other Skin: Warm, Dry, Intact Neurological: No New Focal Deficit Psy/Mental Status: Alert, Normal Affect, Normal Mood Sepsis Event Note - Evaluation Current Stage of Sepsis: Sepsis Possible Source of Sepsis: GI Tract/Intra-abdominal - Focused Exam Sepsis Event Note Statement: Focused Sepsis Exam Completed Vital Signs: Vital Signs Temp Resp BP Pulse Ox 12/20/19 13:00 17 98 12/20/19 12:00 37 C 16 103/61 92 L 12/20/19 11:00 15 101/65 92 L 12/20/19 10:00 14 105/69 93 L 12/20/19 09:00 17 101/66 92 L 12/20/19 08:00 36.8 C 14 111/65 92 L 12/20/19 07:00 14 115/75 92 L 12/20/19 06:00 36.4 C 13 110/74 94 L 12/20/19 05:00 13 109/68 94 L 12/20/19 04:00 13 111/74 94 L 12/20/19 03:00 12 112/76 92 L Date Exam was Performed: 12/20/19 Time Exam was Performed: 14:12 - Bedside Monitoring Bedside Ultrasound Performed: No Date Bedside Monitoring was Performed: 12/20/19 Time Bedside Monitoring was Performed: 14:12 - Problem List & Annotations (1) Nephrolithiasis SNOMED Code(s): 91117270 Code(s): N20.0 - CALCULUS OF KIDNEY Status: Acute Current Visit: Yes (2) Polycythemia secondary to smoking SNOMED Code(s): 62957869 Code(s): D75.1 - SECONDARY POLYCYTHEMIA Status: Acute Current Visit: Yes (3) Cholecystitis SNOMED Code(s): 22905837 Code(s): K81.9 - CHOLECYSTITIS, UNSPECIFIED Status: Acute Current Visit: Yes (4) Dehydration SNOMED Code(s): 22216613 Code(s): E86.0 - DEHYDRATION Status: Acute Current Visit: Yes (5) Sepsis SNOMED Code(s): 47782021 Code(s): A41.9 - SEPSIS, UNSPECIFIED ORGANISM Status: Acute Current Visit : Yes - Problem List Review Problem List Initiated/Reviewed/Updated: Yes - My Orders Last 24 Hours: Active Orders 24 hr Category Date Time Status Remove Horowitz Catheter [Urinary Catheter Removal] [RC] Care 12/20/19 07:46 Active Per Unit Routine Clear Liquid Diet [DIET] Diet 12/20/19 Lunch Active Soft Diet [DIET] Diet 12/20/19 Dinner Ordered CBC W/O DIFF,HEMOGRAM [HEME] AM Lab 12/21/19 05:11 Ordered CBC W/O DIFF,HEMOGRAM [HEME] AM Lab 12/22/19 05:11 Ordered CMP [COMPREHENSIVE METABOLIC PN,CMP] [CHEM] AM Lab 12/21/19 05:11 Ordered Aspirin Med 12/20/19 10:15 Active 81 mg PO DAILY Cyclobenzaprine [Flexeril] Med 12/19/19 21:00 Active 10 mg PO BID Enoxaparin [Lovenox] Med 12/20/19 10:15 Active 40 mg SUBCUT Q24H Omeprazole Med 12/21/19 07:30 Ordered 20 mg PO ACBREAKFAST polyethylene glycoL 3350 [MiraLAX] Med 12/20/19 14:15 Ordered 17 gm PO DAILY NG [Nasogastric Orogastric Tube Removal] [OM.PC] Oth 12/19/19 18:34 Ordered Routine Medication Orders Hydrocodone Bitart/Acetaminophen (Oliver 325-5 Mg) 2 tab PO Q4H PRN PRN Reason: Pain (moderate 4-6) Last Admin: 12/20/19 06:12 Dose: 2 tab Admin: 12/19/19 20:56 Dose: 2 tab Albuterol/Ipratropium (Duoneb 3.0-0.5 Mg/3 Ml) 3 ml NEB Q6HRRT PRN PRN Reason: Wheezing Aspirin (Aspirin) 81 mg PO DAILY [facility] Last Admin: 12/20/19 10:50 Dose: 81 mg Cyclobenzaprine HCl (Flexeril) 10 mg PO BID [facility] Last Admin: 12/20/19 08:38 Dose: 10 mg Admin: 12/19/19 20:56 Dose: 10 mg Diphenhydramine HCl (Benadryl) 50 mg IVPUSH Q4H PRN PRN Reason: Itching Enoxaparin Sodium (Lovenox) 40 mg SUBCUT Q24H [facility] Last Admin: 12/20/19 10:53 Dose: 40 mg Sodium Chloride (Normal Saline) 1,000 mls @ 999 mls/hr IV ASDIRECTED [facility] Last Admin: 12/18/19 04:47 Dose: 999 mls/hr Piperacillin Sod/Tazobactam (Sod 3.375 gm/ Sodium Chloride) 50 mls @ 100 mls/ hr IV Q6H [facility] Last Admin: 12/20/19 14:09 Dose: 100 mls/hr Infusion: 12/20/19 08:30 Dose: 100 mls/hr Admin: 12/20/19 08:00 Dose: 100 mls/hr Infusion: 12/20/19 02:38 Dose: 100 mls/hr Admin: 12/20/19 02:08 Dose: 100 mls/hr Infusion: 12/19/19 21:31 Dose: 100 mls/hr Admin: 12/19/19 21:01 Dose: 100 mls/hr Infusion: 12/19/19 15:54 Dose: 100 mls/hr Admin: 12/19/19 15:24 Dose: 100 mls/hr Infusion: 12/19/19 08:43 Dose: 100 mls/hr Admin: 12/19/19 08:13 Dose: 100 mls/hr Infusion: 12/19/19 02:04 Dose: 100 mls/hr Admin: 12/19/19 01:34 Dose: 100 mls/hr Infusion: 12/18/19 20:19 Dose: 100 mls/hr Admin: 12/18/19 19:49 Dose: 100 mls/hr Ketorolac Tromethamine (Toradol) 15 mg IVPUSH Q6H PRN PRN Reason: Abdominal Pain Stop: 12/24/19 12:26 Last Admin: 12/20/19 09:50 Dose: 15 mg Admin: 12/19/19 17:31 Dose: 15 mg Morphine Sulfate (Morphine) 4 mg IVPUSH Q2H PRN PRN Reason: Pain (severe 7-10) Last Admin: 12/19/19 15:23 Dose: 4 mg Admin: 12/18/19 20:03 Dose: 4 mg Nicotine (Habitrol) 14 mg TRDERM DAILY [facility] Last Admin: 12/20/19 08:39 Dose: Not Given Admin: 12/19/19 09:09 Dose: Admin: 12/18/19 11:26 Dose: Not Given Ondansetron HCl (Zofran) 4 mg IVPUSH Q6H PRN PRN Reason: Nausea/Vomiting Sodium Chloride (Saline Flush) 10 ml FLUSH ASDIRECTED PRN PRN Reason: Keep Vein Open Sodium Chloride (Saline Flush) 2.5 ml FLUSH ASDIRECTED PRN PRN Reason: Keep Vein Open Sodium Chloride (Normal Saline) 10 ml IV ASDIRECTED PRN PRN Reason: IV Use - Assessment Assessment (Free Text/Narrative):: Patient was examined by myself and the resident this morning. Agree with the above. CXR this morning shows no significant change. Continue to work on pulmonary toilet. BiPAP when in bed and asleep. IV fluids stopped as patient is tolerating a clear liquid diet. Will advance diet to soft. No flatus yet. Will stick with soft diet until passing gas. Omeprazole for GI px. Lovenox and baby aspirin for dvt px. Miralax for bowel regiment. With tenuous respiratory status will keep in ICU today.
[2019-12-20] MEDS: Ketorolac 15 MG/ML SDV IVPUSH PRN (09:50)
--- NOTE | 2019-12-20 10:44 | CR ---
Chest: Portable view of the chest was obtained. Comparison: Prior chest x-ray of 12/18/19. Heart size and mediastinum are within normal limits for portable technique. Slight scarring is noted within the left base. Lungs show no acute parenchymal change. Bony structures are grossly intact. Impression: 1. Slight scarring within the left base. 2. Nothing acute is appreciated on portable chest x-ray. Diagnostic code #2 This report was dictated in [place] Standard Time
[2019-12-20] MEDS: Aspirin 81 MG Tab.Chew PO SCH (10:50)
[2019-12-20] MEDS: Enoxaparin 40 MG/0.4 ML Syringe SUBCUT SCH (10:53)
[2019-12-20] MEDS: Polyethylene Glycol 3350 Powder 17 GM Packet PO SCH (16:09)
[2019-12-21] MEDS: Piperacillin/Tazobactam 3.375 GM in Sodium Chloride 0.9% 50 ML IV SCH ×3 (02:38→14:28)
[2019-12-21 06:48] LABS: BLOOD UREA NITROGEN,BUN 15 mg/dL (7.0-18.0); CARBON DIOXIDE,CO2 29.9 mmol/L (21.0-32.0); CHLORIDE,CL 109 mmol/L (98-107); GLUCOSE RANDOM 87 mg/dL (74-106); POTASSIUM,K 4.2 mmol/L (3.5-5.1); SODIUM,NA 143 mmol/L (136-148)
[2019-12-21] MEDS: Aspirin 81 MG Tab.Chew PO SCH (08:02)
[2019-12-21] MEDS: Cyclobenzaprine 10 MG Tab PO SCH ×2 (08:02→20:14)
[2019-12-21] MEDS: Omeprazole 20 MG Cap.CR PO SCH (08:02)
[2019-12-21] MEDS: Acetaminophen/HYDROcodone 325-5 MG Tab PO PRN (08:03)
[2019-12-21] MEDS: Nicotine 14 MG/24 Hr Patch TRDERM SCH (08:04)
[2019-12-21] MEDS: Polyethylene Glycol 3350 Powder 17 GM Packet PO SCH (08:04)
[2019-12-21] MEDS: Enoxaparin 40 MG/0.4 ML Syringe SUBCUT SCH (09:46)
[2019-12-21] MEDS: Morphine 4 MG/ML Syringe IVPUSH PRN (18:23)
--- NOTE | 2019-12-21 18:52 | PCM.SURGPN ---
- General Info Date of Service: 12/21/19 Date of Surgery/Procedure: 12/19/19 POD#: 2 Functional Status: Reports: Pain Controlled, Tolerating Diet, Ambulating, Urinating. Denies: New Symptoms - Review of Systems General: Reports: No Symptoms HEENT: Reports: No Symptoms Pulmonary: Reports: No Symptoms Cardiovascular: Reports: No Symptoms Gastrointestinal: Reports: No Symptoms, Flatus. Denies: Constipation Genitourinary: Reports: No Symptoms Musculoskeletal: Reports: No Symptoms Skin: Reports: No Symptoms - Patient Data Vitals - Most Recent: Last Vital Signs Temp 37.1 C 12/21/19 16:47 Pulse 69 12/21/19 16:47 Resp 16 12/21/19 16:47 BP 125/77 12/21/19 16:47 Pulse Ox 92 L 12/21/19 16:47 Weight - Most Recent: 97.069 kg I&O - Last 24 Hours: Intake & Output 12/21/19 12/21/19 12/21/19 06:59 14:59 22:59 Intake Total 450 120 520 Output Total 340 28 Balance 110 120 492 Lab Results Last 24 Hrs: Laboratory Results - last 24 hr 12/21/19 12/21/19 12/21/19 Range/Units 06:17 06:17 15:02 WBC 13.94 H 12.00 H (4.0-11.0) K/uL RBC 4.58 4.51 (4.50-5.90) M/uL Hgb 13.8 13.7 (13.0-17.0) g/dL Hct 42.8 41.9 (38.0-50.0) % MCV 93.4 92.9 (80.0-98.0) fL MCH 30.1 30.4 (27.0-32.0) pg MCHC 32.2 32.7 (31.0-37.0) g/dL RDW Std Deviation 45.8 45.9 (28.0-62.0) fl RDW Coeff of Jv 13 14 (11.0-15.0) % Plt Count 240 258 (150-400) K/uL MPV 10.00 9.80 (7.40-12.00) fL Nucleated RBC % 0.0 0.0 /100WBC Nucleated RBCs # 0 0 K/uL Sodium 143 (136-148) mmol/L Potassium 4.2 (3.5-5.1) mmol/L Chloride 109 H (98-107) mmol/L Carbon Dioxide 29.9 (21.0-32.0) mmol/L BUN 15 (7.0-18.0) mg/dL Creatinine 1.1 (0.8-1.3) mg/dL Est Cr Clr Drug Dosing 77.42 mL/min Estimated GFR (MDRD) > 60.0 ml/min Glucose 87 (74-106) mg/dL Calcium 8.0 L (8.5-10.1) mg/dL Total Bilirubin 0.3 (0.2-1.0) mg/dL AST 24 (15-37) IU/L ALT 51 (14-63) IU/L Alkaline Phosphatase 48 (46-116) U/L Total Protein 5.6 L (6.4-8.2) g/dL Albumin 2.4 L (3.4-5.0) g/dL Globulin 3.2 (2.6-4.0) g/dL Albumin/Globulin Ratio 0.8 L (0.9-1.6) Lonnie Results Last 24 Hrs: Microbiology 12/19/19 10:00 Gram Stain - Final Gallbladder Fluid - Bile Wound Culture - Final Escherichia Coli 12/18/19 07:12 Aerobic Blood Culture - Preliminary Blood NO GROWTH AFTER 3 DAYS Anaerobic Blood Culture - Final 12/18/19 06:30 Aerobic Blood Culture - Preliminary Blood NO GROWTH AFTER 3 DAYS Anaerobic Blood Culture - Preliminary NO GROWTH AFTER 3 DAYS Med Orders - Current: Current Medications Hydrocodone Bitart/Acetaminophen ([place] 325-5 Mg) 2 tab PO Q4H PRN PRN Reason: Pain (moderate 4-6) Last Admin: 12/21/19 08:03 Dose: 2 tab Albuterol/Ipratropium (Duoneb 3.0-0.5 Mg/3 Ml) 3 ml NEB Q6HRRT PRN PRN Reason: Wheezing Amoxicillin/Clavulanate Potassium (Augmentin 875 Mg/125 Mg) 1 tab PO Q12HR [facility] Aspirin (Aspirin) 81 mg PO DAILY [facility] Last Admin: 12/21/19 08:02 Dose: 81 mg Cyclobenzaprine HCl (Flexeril) 10 mg PO BID [facility] Last Admin: 12/21/19 08:02 Dose: 10 mg Diphenhydramine HCl (Benadryl) 50 mg IVPUSH Q4H PRN PRN Reason: Itching Enoxaparin Sodium (Lovenox) 40 mg SUBCUT Q24H [facility] Last Admin: 12/21/19 09:46 Dose: 40 mg Sodium Chloride (Normal Saline) 1,000 mls @ 999 mls/hr IV ASDIRECTED [facility] Last Admin: 12/18/19 04:47 Dose: 999 mls/hr Ketorolac Tromethamine (Toradol) 15 mg IVPUSH Q6H PRN PRN Reason: Abdominal Pain Stop: 12/24/19 12:26 Last Admin: 12/20/19 09:50 Dose: 15 mg Morphine Sulfate (Morphine) 4 mg IVPUSH Q2H PRN PRN Reason: Pain (severe 7-10) Last Admin: 12/21/19 18:23 Dose: 4 mg Nicotine (Habitrol) 14 mg TRDERM DAILY [facility] Last Admin: 12/21/19 08:04 Dose: Not Given Omeprazole (Omeprazole) 20 mg PO ACBREAKFAST [facility] Last Admin: 12/21/19 08:02 Dose: 20 mg Ondansetron HCl (Zofran) 4 mg IVPUSH Q6H PRN PRN Reason: Nausea/Vomiting Polyethylene Glycol (Miralax) 17 gm PO DAILY [facility] Last Admin: 12/21/19 08:04 Dose: 17 gm Sodium Chloride (Saline Flush) 10 ml FLUSH ASDIRECTED PRN PRN Reason: Keep Vein Open Sodium Chloride (Saline Flush) 2.5 ml FLUSH ASDIRECTED PRN PRN Reason: Keep Vein Open Sodium Chloride (Normal Saline) 10 ml IV ASDIRECTED PRN PRN Reason: IV Use Discontinued Medications Acetaminophen (Tylenol) 650 mg PO Q6H PRN PRN Reason: Pain (mild 1-3) Al Hydroxide/Mg Hydroxide (Mag-Al Plus) 30 ml PO ONETIME ONE Stop: 12/18/19 04:09 Last Admin: 12/18/19 04:15 Dose: 30 ml Albuterol (Proventil Neb Soln) 2.5 mg NEB ONETIME PRN PRN Reason: Wheezing Atropine Sulfate (Atropine 0.1 Mg/Ml) 0.5 mg IVPUSH ASDIRECTED PRN PRN Reason: Hypo-perfusion Atropine Sulfate (Atropine 0.1 Mg/Ml) 1 mg IVPUSH ASDIRECTED PRN PRN Reason: Hypo-Perfusion Bupivacaine HCl (Marcaine 0.5%) Confirm Administered Dose 30 ml .ROUTE .STK-MED ONE Stop: 12/19/19 07:52 Bupivacaine HCl (Marcaine 0.5%) Confirm Administered Dose 120 ml .ROUTE .STK- MED ONE Stop: 12/19/19 08:03 Bupivacaine HCl/Epinephrine Bitart (Marcaine 0.25%/Epinephrine 1:200,000) Confirm Administered Dose 20 ml .ROUTE .STK-MED ONE Stop: 12/19/19 13:13 Dexamethasone (Dexamethasone) Confirm Administered Dose 20 mg .ROUTE .STK-MED ONE Stop: 12/19/19 10:14 Dextrose/Water (Dextrose 50% In Water) 50 ml IVPUSH ASDIRECTED PRN PRN Reason: Hypoglycemia Epinephrine HCl (Epinephrine 1:10,000) 1 mg IVPUSH ASDIRECTED PRN PRN Reason: ACLS Guidelines Famotidine (Pepcid) 20 mg IVPUSH ONETIME ONE Stop: 12/18/19 04:09 Last Admin: 12/18/19 04:15 Dose: 20 mg Fentanyl (Sublimaze) Confirm Administered Dose 250 mcg .ROUTE .STK-MED ONE Stop: 12/19/19 08:44 Fentanyl (Sublimaze) 50 - 100 mcg IVPUSH Q5M PRN PRN Reason: Pain Hydromorphone HCl (Dilaudid) Confirm Administered Dose 2 mg .ROUTE .ST-MED ONE Stop: 12/19/19 09:41 Hydromorphone HCl (Dilaudid) 0.5 mg IVPUSH .Q10MIN PRN PRN Reason: Pain Piperacillin Sod/Tazobactam (Sod 4.5 gm/ Sodium Chloride) 100 mls @ 100 mls/hr IV ONETIME ONE Stop: 12/18/19 07:14 Last Admin: 12/18/19 06:54 Dose: 100 mls/hr Lactated Ringer's (Ringers, Lactated) 1,000 mls @ 999 mls/hr IV ASDIRECTED [facility] Last Admin: 12/18/19 07:53 Dose: 999 mls/hr Lactated Ringer's (Ringers, Lactated) 1,000 mls @ 125 mls/hr IV ASDIRECTED [facility] Last Admin: 12/20/19 03:32 Dose: 125 mls/hr Piperacillin Sod/Tazobactam (Sod 3.375 gm/ Sodium Chloride) 50 mls @ 100 mls/ hr IV Q6H [facility] Last Admin: 12/21/19 14:28 Dose: 100 mls/hr Acetaminophen (Ofirmev) Confirm Administered Dose 100 mls @ as directed .ROUTE .STK-MED ONE Stop: 12/19/19 10:37 Iopamidol (Isovue-370 (76%)) 100 ml IVPUSH ONETIME STA Stop: 12/18/19 05:14 Last Admin: 12/18/19 05:38 Dose: 100 ml Ketamine HCl (Ketalar) Confirm Administered Dose 500 mg .ROUTE .STK-MED ONE Stop: 12/19/19 10:33 Lidocaine (Xylocaine-Mpf 2%) Confirm Administered Dose 5 ml .ROUTE .STK-MED ONE Stop: 12/19/19 08:44 Midazolam HCl (Versed 1 Mg/Ml) Confirm Administered Dose 2 mg .ROUTE .STK-MED ONE Stop: 12/19/19 08:44 Morphine Sulfate (Morphine) 8 mg IVPUSH ONETIME ONE Stop: 12/18/19 06:08 Last Admin: 12/18/19 06:13 Dose: 8 mg Morphine Sulfate (Morphine) 4 mg IVPUSH ONETIME ONE Stop: 12/18/19 06:52 Last Admin: 12/18/19 07:02 Dose: 4 mg Naloxone HCl (Narcan) 0.1 mg IVPUSH ASDIRECTED PRN PRN Reason: Respiratory Depression Ondansetron HCl (Zofran) 4 mg IVPUSH ONETIME ONE Stop: 12/18/19 06:09 Last Admin: 12/18/19 06:14 Dose: 4 mg Ondansetron HCl (Zofran) Confirm Administered Dose 4 mg .ROUTE .STK-MED ONE Stop: 12/19/19 08:44 Phenylephrine HCl (Phenylephrine In Ns 100 Mcg/Ml) Confirm Administered Dose 1 mg .ROUTE .STK-MED ONE Stop: 12/19/19 09:09 Propofol (Diprivan 20 Ml) Confirm Administered Dose 200 mg .ROUTE .STK-MED ONE Stop: 12/19/19 08:44 Rocuronium [place] (Zemuron) Confirm Administered Dose 100 mg .ROUTE .STK-MED ONE Stop: 12/19/19 08:44 Sugammadex Sodium ([place]rid[place]) Confirm Administered Dose 200 mg .ROUTE .STK-MED ONE Stop: 12/19/19 10:37 Vasopressin (Vasopressin) Confirm Administered Dose 20 units .ROUTE .STK-MED ONE Stop: 12/19/19 11:24 - Exam Wound/Incisions: Healing Well, No Drainage General: Alert, Oriented HEENT: Pupils Equal, Pupils Reactive Lungs: Normal Respiratory Effort Cardiovascular: Regular Rate GI/Abdominal Exam: Soft, Non-Tender, No Distention, No Mass Extremities: Normal Inspection Skin: Warm, Dry, Intact Sepsis Event Note - Evaluation Sepsis Screening Result: No Definite Risk - Focused Exam Vital Signs: Vital Signs Temp Pulse Resp BP Pulse Ox 12/21/19 16:47 37.1 C 69 16 125/77 92 L 12/21/19 11:46 35.6 C L 86 18 114/71 91 L 12/21/19 07:49 36.7 C 80 17 131/80 94 L Date Exam was Performed: 12/21/19 Time Exam was Performed: 18:49 - Problem List & Annotations (1) Nephrolithiasis SNOMED Code(s): 33131928 Code(s): N20.0 - CALCULUS OF KIDNEY Status: Acute Current Visit: Yes (2) Polycythemia secondary to smoking SNOMED Code(s): 17786110 Code(s): D75.1 - SECONDARY POLYCYTHEMIA Status: Acute Current Visit: Yes (3) Cholecystitis SNOMED Code(s): 42725217 Code(s): K81.9 - CHOLECYSTITIS, UNSPECIFIED Status: Acute Current Visit: Yes (4) Dehydration SNOMED Code(s): 14167466 Code(s): E86.0 - DEHYDRATION Status: Acute Current Visit: Yes (5) Sepsis SNOMED Code(s): 38512197 Code(s): A41.9 - SEPSIS, UNSPECIFIED ORGANISM Status: Acute Current Visit : Yes Qualifiers: Sepsis type: Escherichia coli Severe sepsis shock status: with septic shock - Problem List Review Problem List Initiated/Reviewed/Updated: Yes - My Orders Last 24 Hours: Active Orders 24 hr Category Date Time Status Regular Diet [DIET] Diet 12/21/19 Breakfast Active CBC W/O DIFF,HEMOGRAM [HEME] AM Lab 12/22/19 05:11 Ordered Amoxicillin/Clavulanate K [Augmentin 875 MG/125 MG] Med 12/21/19 21:00 Active 1 tab PO Q12HR Omeprazole Med 12/21/19 07:30 Active 20 mg PO ACBREAKFAST Medication Orders Hydrocodone Bitart/Acetaminophen ([place] 325-5 Mg) 2 tab PO Q4H PRN PRN Reason: Pain (moderate 4-6) Last Admin: 12/21/19 08:03 Dose: 2 tab Admin: 12/20/19 23:25 Dose: 2 tab Admin: 12/20/19 17:52 Dose: 2 tab Admin: 12/20/19 06:12 Dose: 2 tab Admin: 12/19/19 20:56 Dose: 2 tab Albuterol/Ipratropium (Duoneb 3.0-0.5 Mg/3 Ml) 3 ml NEB Q6HRRT PRN PRN Reason: Wheezing Amoxicillin/Clavulanate Potassium (Augmentin 875 Mg/125 Mg) 1 tab PO Q12HR [facility] Aspirin (Aspirin) 81 mg PO DAILY [facility] Last Admin: 12/21/19 08:02 Dose: 81 mg Admin: 12/20/19 10:50 Dose: 81 mg Cyclobenzaprine HCl (Flexeril) 10 mg PO BID [facility] Last Admin: 12/21/19 08:02 Dose: 10 mg Admin: 12/20/19 20:43 Dose: 10 mg Admin: 12/20/19 08:38 Dose: 10 mg Admin: 12/19/19 20:56 Dose: 10 mg Diphenhydramine HCl (Benadryl) 50 mg IVPUSH Q4H PRN PRN Reason: Itching Enoxaparin Sodium (Lovenox) 40 mg SUBCUT Q24H [facility] Last Admin: 12/21/19 09:46 Dose: 40 mg Admin: 12/20/19 10:53 Dose: 40 mg Sodium Chloride (Normal Saline) 1,000 mls @ 999 mls/hr IV ASDIRECTED [facility] Last Admin: 12/18/19 04:47 Dose: 999 mls/hr Ketorolac Tromethamine (Toradol) 15 mg IVPUSH Q6H PRN PRN Reason: Abdominal Pain Stop: 12/24/19 12:26 Last Admin: 12/20/19 09:50 Dose: 15 mg Admin: 12/19/19 17:31 Dose: 15 mg Morphine Sulfate (Morphine) 4 mg IVPUSH Q2H PRN PRN Reason: Pain (severe 7-10) Last Admin: 12/21/19 18:23 Dose: 4 mg Admin: 12/19/19 15:23 Dose: 4 mg Admin: 12/18/19 20:03 Dose: 4 mg Nicotine (Habitrol) 14 mg TRDERM DAILY [facility] Last Admin: 12/21/19 08:04 Dose: Not Given Admin: 12/20/19 08:39 Dose: Not Given Admin: 12/19/19 09:09 Dose: Admin: 12/18/19 11:26 Dose: Not Given Omeprazole (Omeprazole) 20 mg PO ACBREAKFAST [facility] Last Admin: 12/21/19 08:02 Dose: 20 mg Ondansetron HCl (Zofran) 4 mg IVPUSH Q6H PRN PRN Reason: Nausea/Vomiting Polyethylene Glycol (Miralax) 17 gm PO DAILY [facility] Last Admin: 12/21/19 08:04 Dose: 17 gm Admin: 12/20/19 16:09 Dose: 17 gm Sodium Chloride (Saline Flush) 10 ml FLUSH ASDIRECTED PRN PRN Reason: Keep Vein Open Sodium Chloride (Saline Flush) 2.5 ml FLUSH ASDIRECTED PRN PRN Reason: Keep Vein Open Sodium Chloride (Normal Saline) 10 ml IV ASDIRECTED PRN PRN Reason: IV Use - Plan Plan (Free Text/Narrative):: The patient's white blood cell count has come down to 13,000. I rechecked it this afternoon it was 12,000. Will switch the patient from IV Zosyn over to Augmentin twice a day. We will recheck his white blood cell count in the morning. If this is a same or lower patient can discharge home tomorrow. His pain is well-controlled on oral medications he is tolerating a regular diet and he has had 2 bowel movements. His vital signs are stable and he is weaning off of oxygen.
--- NOTE | 2019-12-21 18:57 | PCM.DCSUM1 ---
Discharge Summary - Hospital Course Free Text/Narrative:: Patient is a 54-year-old male who presented with epigastric abdominal pain. Workup revealed a high leukocytosis and CT and ultrasound showed signs of acute cholecystitis. He was admitted for fluid resuscitation and IV antibiotics. By the next morning however he was febrile. His white blood cell count had remained elevated. He was taken for a cholecystectomy. Upon induction he became tachycardic and hypotensive. Throughout the case he required a large amount of fluid resuscitation and pressors. He was found to have a necrotic gallbladder. This required conversion from laparoscopic to an open procedure. By the end of the case even adequately resuscitated and was weaned off of pressors. He was admitted to the ICU for close monitoring. He was kept on BiPAP while asleep. At the next day the patient's diet was advanced to clears and then soft in the evening. His white blood cell count to come down to 19,000. He lost approximately 4 mL of blood during the case and his hemoglobin went from 17.5 preoperatively to 13 postoperatively. His vital signs remained stable and he was transferred to the floor. On postop day 2 the patient's pain was under good control with oral anabiotic's. His white blood cell count came down to 13,000 and on recheck in the afternoon was 12,000. He was switched over to oral antibiotics. His diet was advanced to regular which he tolerated. He had 2 large bowel movements. He was weaned off oxygen. His WBC was the same this morning, but he is clinically doing so well that I feel he is clear for discharge on po antibiotics. Upon admission the patient was noted to have secondary polycythemia. This is likely due to dehydration as well as due to heavy smoking and possibly undiagnosed COPD and/or YANNA. He was placed on lovenox and baby aspirin postoperatively. His hgb A1C was checked and was within normal limits. Will have patient establish care with primary care provider and be seen by them in 2 weeks. - Discharge Data Discharge Date: 12/22/19 Discharge Disposition: Home, Self-Care 01 Condition: Stable - Referral to Home Health Primary Care Physician: PCP None - Discharge Diagnosis/Problem(s) (1) Nephrolithiasis SNOMED Code(s): 06274988 ICD Code: N20.0 - CALCULUS OF KIDNEY Status: Acute Current Visit: Yes (2) Polycythemia secondary to smoking SNOMED Code(s): 24711213 ICD Code: D75.1 - SECONDARY POLYCYTHEMIA Status: Acute Current Visit: Yes (3) Cholecystitis SNOMED Code(s): 59470287 ICD Code: K81.9 - CHOLECYSTITIS, UNSPECIFIED Status: Acute Current Visit : Yes (4) Dehydration SNOMED Code(s): 89778584 ICD Code: E86.0 - DEHYDRATION Status: Acute Current Visit: Yes (5) Sepsis SNOMED Code(s): 28446054 ICD Code: A41.9 - SEPSIS, UNSPECIFIED ORGANISM Status: Acute Current Visit: Yes Qualifiers: Sepsis type: Escherichia coli Severe sepsis shock status: with septic shock - Patient Summary/Data Operative Procedure(s) Performed: Cholecystectomy - Patient Instructions Diet: Regular Diet as Tolerated Diet, Other: Avoid extremely greasy/fatty meals for one month Activity: No Lifting Over 20 Pounds (for six weeks after surgery ), Rest and Relax Today Driving: Do Not Drive (for one week after surgery ) Showering/Bathing: May Shower, No Tub Bathing/Swimming (for 2 weeks ) Wound/Incision Care: Keep Operative Site/Wound Site Clean and Dry Notify Provider of: Fever, Increased Pain, Swelling and Redness, Drainage, Nausea and/or Vomiting - Discharge Plan *PRESCRIPTION DRUG MONITORING PROGRAM REVIEWED*: Yes *COPY OF PRESCRIPTION DRUG MONITORING REPORT IN PATIENT GISELE: Yes Prescriptions/Med Rec: Amoxicillin/Clavulanate K [Augmentin 875-125 MG] 1 tab PO Q12HR #14 tablet Acetaminophen/HYDROcodone [[place] 325-5 MG] 2 tab PO Q4H PRN #30 tablet PRN Reason: Pain (Moderate 4-6) Aspirin 81 mg PO DAILY #30 tab.chew Cyclobenzaprine [Flexeril] 10 mg PO BID PRN #20 tablet PRN Reason: Muscle Spasm Home Medications: Home Meds Non-Formulary Medication [NF Drug] 1 each EARRT ASDIRECTED 12/18/19 [History] Acetaminophen/HYDROcodone [[place] 325-5 MG] 2 tab PO Q4H PRN #30 tablet 12/21/19 [Rx] Amoxicillin/Clavulanate K [Augmentin 875-125 MG] 1 tab PO Q12HR #14 tablet 12/21 [Rx] Aspirin 81 mg PO DAILY #30 tab.chew 12/21/19 [Rx] Cyclobenzaprine [Flexeril] 10 mg PO BID PRN #20 tablet 12/21/19 [Rx] Referrals: Kay Eden MD [Physician] - 01/04/20 8:30 am (Arrive 15 minutes minutes early with photo ID and insurance card. ) Christian Mg MD [Physician] - 01/01/20 8:00 am (Arrive 15 minutes early with a photo ID and insurance card. ) - Discharge Summary/Plan Comment DC Time >30 min.: No - General Info Functional Status: Reports: Pain Controlled, Tolerating Diet, Ambulating, Urinating, Incentive Spirometry. Denies: New Symptoms - Review of Systems General: Reports: No Symptoms HEENT: Reports: No Symptoms Pulmonary: Reports: No Symptoms Cardiovascular: Reports: No Symptoms Gastrointestinal: Reports: Abdominal Pain (along RUQ incision with movement ) Genitourinary: Reports: No Symptoms Musculoskeletal: Reports: No Symptoms - Patient Data Vitals - Most Recent: Last Vital Signs Temp 37.1 C 12/21/19 16:47 Pulse 69 12/21/19 16:47 Resp 16 12/21/19 16:47 BP 125/77 12/21/19 16:47 Pulse Ox 92 L 12/21/19 16:47 Weight - Most Recent: 97.069 kg I&O - Last 24 hours: Intake & Output 12/21/19 12/21/19 12/21/19 06:59 14:59 22:59 Intake Total 450 120 520 Output Total 340 28 Balance 110 120 492 Lab Results - Last 24 hrs: Laboratory Results - last 24 hr 12/21/19 12/21/19 12/21/19 Range/Units 06:17 06:17 15:02 WBC 13.94 H 12.00 H (4.0-11.0) K/uL RBC 4.58 4.51 (4.50-5.90) M/uL Hgb 13.8 13.7 (13.0-17.0) g/dL Hct 42.8 41.9 (38.0-50.0) % MCV 93.4 92.9 (80.0-98.0) fL MCH 30.1 30.4 (27.0-32.0) pg MCHC 32.2 32.7 (31.0-37.0) g/dL RDW Std Deviation 45.8 45.9 (28.0-62.0) fl RDW Coeff of Jv 13 14 (11.0-15.0) % Plt Count 240 258 (150-400) K/uL MPV 10.00 9.80 (7.40-12.00) fL Nucleated RBC % 0.0 0.0 /100WBC Nucleated RBCs # 0 0 K/uL Sodium 143 (136-148) mmol/L Potassium 4.2 (3.5-5.1) mmol/L Chloride 109 H (98-107) mmol/L Carbon Dioxide 29.9 (21.0-32.0) mmol/L BUN 15 (7.0-18.0) mg/dL Creatinine 1.1 (0.8-1.3) mg/dL Est Cr Clr Drug Dosing 77.42 mL/min Estimated GFR (MDRD) > 60.0 ml/min Glucose 87 (74-106) mg/dL Calcium 8.0 L (8.5-10.1) mg/dL Total Bilirubin 0.3 (0.2-1.0) mg/dL AST 24 (15-37) IU/L ALT 51 (14-63) IU/L Alkaline Phosphatase 48 (46-116) U/L Total Protein 5.6 L (6.4-8.2) g/dL Albumin 2.4 L (3.4-5.0) g/dL Globulin 3.2 (2.6-4.0) g/dL Albumin/Globulin Ratio 0.8 L (0.9-1.6) SERAFIN Results - Last 24 hrs: Microbiology 12/19/19 10:00 Gram Stain - Final Gallbladder Fluid - Bile Wound Culture - Final Escherichia Coli 12/18/19 07:12 Aerobic Blood Culture - Preliminary Blood NO GROWTH AFTER 3 DAYS Anaerobic Blood Culture - Final 12/18/19 06:30 Aerobic Blood Culture - Preliminary Blood NO GROWTH AFTER 3 DAYS Anaerobic Blood Culture - Preliminary NO GROWTH AFTER 3 DAYS Med Orders - Current: Current Medications Hydrocodone Bitart/Acetaminophen ([place] 325-5 Mg) 2 tab PO Q4H PRN PRN Reason: Pain (moderate 4-6) Last Admin: 12/21/19 08:03 Dose: 2 tab Albuterol/Ipratropium (Duoneb 3.0-0.5 Mg/3 Ml) 3 ml NEB Q6HRRT PRN PRN Reason: Wheezing Amoxicillin/Clavulanate Potassium (Augmentin 875 Mg/125 Mg) 1 tab PO Q12HR [facility] Aspirin (Aspirin) 81 mg PO DAILY [facility] Last Admin: 12/21/19 08:02 Dose: 81 mg Cyclobenzaprine HCl (Flexeril) 10 mg PO BID [facility] Last Admin: 12/21/19 08:02 Dose: 10 mg Diphenhydramine HCl (Benadryl) 50 mg IVPUSH Q4H PRN PRN Reason: Itching Enoxaparin Sodium (Lovenox) 40 mg SUBCUT Q24H [facility] Last Admin: 12/21/19 09:46 Dose: 40 mg Sodium Chloride (Normal Saline) 1,000 mls @ 999 mls/hr IV ASDIRECTED [facility] Last Admin: 12/18/19 04:47 Dose: 999 mls/hr Ketorolac Tromethamine (Toradol) 15 mg IVPUSH Q6H PRN PRN Reason: Abdominal Pain Stop: 12/24/19 12:26 Last Admin: 12/20/19 09:50 Dose: 15 mg Morphine Sulfate (Morphine) 4 mg IVPUSH Q2H PRN PRN Reason: Pain (severe 7-10) Last Admin: 12/21/19 18:23 Dose: 4 mg Nicotine (Habitrol) 14 mg TRDERM DAILY [facility] Last Admin: 12/21/19 08:04 Dose: Not Given Omeprazole (Omeprazole) 20 mg PO ACBREAKFAST [facility] Last Admin: 12/21/19 08:02 Dose: 20 mg Ondansetron HCl (Zofran) 4 mg IVPUSH Q6H PRN PRN Reason: Nausea/Vomiting Sodium Chloride (Saline Flush) 10 ml FLUSH ASDIRECTED PRN PRN Reason: Keep Vein Open Sodium Chloride (Saline Flush) 2.5 ml FLUSH ASDIRECTED PRN PRN Reason: Keep Vein Open Sodium Chloride (Normal Saline) 10 ml IV ASDIRECTED PRN PRN Reason: IV Use Discontinued Medications Acetaminophen (Tylenol) 650 mg PO Q6H PRN PRN Reason: Pain (mild 1-3) Al Hydroxide/Mg Hydroxide (Mag-Al Plus) 30 ml PO ONETIME ONE Stop: 12/18/19 04:09 Last Admin: 12/18/19 04:15 Dose: 30 ml Albuterol (Proventil Neb Soln) 2.5 mg NEB ONETIME PRN PRN Reason: Wheezing Atropine Sulfate (Atropine 0.1 Mg/Ml) 0.5 mg IVPUSH ASDIRECTED PRN PRN Reason: Hypo-perfusion Atropine Sulfate (Atropine 0.1 Mg/Ml) 1 mg IVPUSH ASDIRECTED PRN PRN Reason: Hypo-Perfusion Bupivacaine HCl (Marcaine 0.5%) Confirm Administered Dose 30 ml .ROUTE .STK-MED ONE Stop: 12/19/19 07:52 Bupivacaine HCl (Marcaine 0.5%) Confirm Administered Dose 120 ml .ROUTE .STK- MED ONE Stop: 12/19/19 08:03 Bupivacaine HCl/Epinephrine Bitart (Marcaine 0.25%/Epinephrine 1:200,000) Confirm Administered Dose 20 ml .ROUTE .STK-MED ONE Stop: 12/19/19 13:13 Dexamethasone (Dexamethasone) Confirm Administered Dose 20 mg .ROUTE .STK-MED ONE Stop: 12/19/19 10:14 Dextrose/Water (Dextrose 50% In Water) 50 ml IVPUSH ASDIRECTED PRN PRN Reason: Hypoglycemia Epinephrine HCl (Epinephrine 1:10,000) 1 mg IVPUSH ASDIRECTED PRN PRN Reason: ACLS Guidelines Famotidine (Pepcid) 20 mg IVPUSH ONETIME ONE Stop: 12/18/19 04:09 Last Admin: 12/18/19 04:15 Dose: 20 mg Fentanyl (Sublimaze) Confirm Administered Dose 250 mcg .ROUTE .STK-MED ONE Stop: 12/19/19 08:44 Fentanyl (Sublimaze) 50 - 100 mcg IVPUSH Q5M PRN PRN Reason: Pain Hydromorphone HCl (Dilaudid) Confirm Administered Dose 2 mg .ROUTE .STK-MED ONE Stop: 12/19/19 09:41 Hydromorphone HCl (Dilaudid) 0.5 mg IVPUSH .Q10MIN PRN PRN Reason: Pain Piperacillin Sod/Tazobactam (Sod 4.5 gm/ Sodium Chloride) 100 mls @ 100 mls/hr IV ONETIME ONE Stop: 12/18/19 07:14 Last Admin: 12/18/19 06:54 Dose: 100 mls/hr Lactated Ringer's (Ringers, Lactated) 1,000 mls @ 999 mls/hr IV ASDIRECTED [facility] Last Admin: 12/18/19 07:53 Dose: 999 mls/hr Lactated Ringer's (Ringers, Lactated) 1,000 mls @ 125 mls/hr IV ASDIRECTED [facility] Last Admin: 12/20/19 03:32 Dose: 125 mls/hr Piperacillin Sod/Tazobactam (Sod 3.375 gm/ Sodium Chloride) 50 mls @ 100 mls/ hr IV Q6H [facility] Last Admin: 12/21/19 14:28 Dose: 100 mls/hr Acetaminophen (Ofirmev) Confirm Administered Dose 100 mls @ as directed .ROUTE .STK-MED ONE Stop: 12/19/19 10:37 Iopamidol (Isovue-370 (76%)) 100 ml IVPUSH ONETIME STA Stop: 12/18/19 05:14 Last Admin: 12/18/19 05:38 Dose: 100 ml Ketamine HCl (Ketalar) Confirm Administered Dose 500 mg .ROUTE .STK-MED ONE Stop: 12/19/19 10:33 Lidocaine (Xylocaine-Mpf 2%) Confirm Administered Dose 5 ml .ROUTE .STK-MED ONE Stop: 12/19/19 08:44 Midazolam HCl (Versed 1 Mg/Ml) Confirm Administered Dose 2 mg .ROUTE .STK-MED ONE Stop: 12/19/19 08:44 Morphine Sulfate (Morphine) 8 mg IVPUSH ONETIME ONE Stop: 12/18/19 06:08 Last Admin: 12/18/19 06:13 Dose: 8 mg Morphine Sulfate (Morphine) 4 mg IVPUSH ONETIME ONE Stop: 12/18/19 06:52 Last Admin: 12/18/19 07:02 Dose: 4 mg Naloxone HCl (Narcan) 0.1 mg IVPUSH ASDIRECTED PRN PRN Reason: Respiratory Depression Ondansetron HCl (Zofran) 4 mg IVPUSH ONETIME ONE Stop: 12/18/19 06:09 Last Admin: 12/18/19 06:14 Dose: 4 mg Ondansetron HCl (Zofran) Confirm Administered Dose 4 mg .ROUTE .STK-MED ONE Stop: 12/19/19 08:44 Phenylephrine HCl (Phenylephrine In Ns 100 Mcg/Ml) Confirm Administered Dose 1 mg .ROUTE .STK-MED ONE Stop: 12/19/19 09:09 Polyethylene Glycol (Miralax) 17 gm PO DAILY [facility] Last Admin: 12/21/19 08:04 Dose: 17 gm Propofol (Diprivan 20 Ml) Confirm Administered Dose 200 mg .ROUTE .STK-MED ONE Stop: 12/19/19 08:44 Rocuronium [place] (Zemuron) Confirm Administered Dose 100 mg .ROUTE .STK-MED ONE Stop: 12/19/19 08:44 Sugammadex Sodium (Bridion) Confirm Administered Dose 200 mg .ROUTE .STK-MED ONE Stop: 12/19/19 10:37 Vasopressin (Vasopressin) Confirm Administered Dose 20 units .ROUTE .STK-MED ONE Stop: 12/19/19 11:24 - Exam Quality Assessment: Reports: Supplemental Oxygen General: Reports: Alert, Oriented HEENT: Reports: Pupils Equal, Pupils Reactive Lungs: Reports: Normal Respiratory Effort Cardiovascular: Reports: Regular Rate GI/Abdominal Exam: Soft, Non-Tender, No Distention, No Mass Back Exam: Reports: Normal Inspection, Full Range of Motion Extremities: Normal Inspection, Normal Range of Motion Skin: Reports: Warm, Dry, Intact Wound/Incisions: Reports: Healing Well, Dressing Dry and Intact Psy/Mental Status: Reports: Alert, Normal Affect
[2019-12-21] MEDS: Amoxicillin/Clavulanate K 875-125 MG Tab PO SCH (20:14)
[2019-12-22] MEDS: Omeprazole 20 MG Cap.CR PO SCH (08:08)
[2019-12-22] MEDS: Aspirin 81 MG Tab.Chew PO SCH (08:08)
[2019-12-22] MEDS: Nicotine 14 MG/24 Hr Patch TRDERM SCH (08:09)
[2019-12-22] MEDS: Amoxicillin/Clavulanate K 875-125 MG Tab PO SCH (08:09)
[2019-12-22] MEDS: Cyclobenzaprine 10 MG Tab PO SCH (08:09)
[2019-12-22] MEDS: Acetaminophen/HYDROcodone 325-5 MG Tab PO PRN (08:09)
[2019-12-22] MEDS: Enoxaparin 40 MG/0.4 ML Syringe SUBCUT SCH (10:30)
== END 2019-12-22 11:30 | disposition home or self-care (01) | DRG 853 ==
LOC: MW.ED 04:07 → OBSVTOIN 06:12 → MW.MS 06:12 → MW.ICU 12-19 12:11 → MW.MS 12-19 12:26
PROVIDERS: ADMIT Surgery; ATTEND Surgery
PROC: 0FT40ZZ Resection of Gallbladder, Open Approach (ICD-10-PCS; principal; 2019-12-19)
PROC: 0FJ44ZZ Inspection of Gallbladder, Percutaneous Endoscopic Approach (ICD-10-PCS; 2019-12-19)
DX: A41.51 Sepsis due to Escherichia coli [E. coli] (principal); J95.821 Acute postprocedural respiratory failure; R65.21 Severe sepsis with septic shock; K80.01 Calculus of gallbladder with acute cholecystitis with obstruction; E86.0 Dehydration; D75.1 Secondary polycythemia; K82.A1 Gangrene of gallbladder in cholecystitis; F17.200 Nicotine dependence, unspecified, uncomplicated; N20.0 Calculus of kidney; Z53.31 Laparoscopic surgical procedure converted to open procedure
CPT/HCPCS: 00790; 36415; 71045; 71045-26; 74177; 74177-26; 76705; 76705-26; 80048; 80053; 81001; 83036; 83605; 83690; 84484; 85025; 85027; 86850; 86900; 86901; 86920; 86921; 86922; 87040; 87070; 87077; 87186; 87205; 88304; 93005; 94660; 96361; 96374; 99285-25; A9270-GY; J0131; J1100; J1170; J1650; J1885; J2001; J2250; J2270; J2370; J2405; J2543; J2704; J3010; J3490; J7030; J7050; J7120; Q9967

== ENCOUNTER 2022-03-15 14:23 | Emergency (ER) | payer SELFPAY ==
[2022-03-15] MEDS ORDERED: Lactated Ringers 1,000 ML IV STA (14:30)
[2022-03-15] MEDS ORDERED: Iopamidol 755 MG/ML 500 ML Multipack Bottle IVPUSH STA (15:02)
[2022-03-15] MEDS ORDERED: Tamsulosin 0.4 MG Cap.ER PO ONE (16:01)
== END 2022-03-15 17:10 | disposition home or self-care (01) ==
LOC: MW.ED 14:23
DX: N13.2 Hydronephrosis with renal and ureteral calculous obstruction (principal)
CPT/HCPCS: 36415; 74177; 81001; 83605; 85610; 87040; 87086; 96360; 99284; A9270; J7120; Q9967

== ENCOUNTER 2024-05-16 09:25 | Day surgery (SDC) | payer SELFPAY ==
[~2024-05-16 09:25] MED LIST: Albuterol 0.083% 2.5 MG/3 ML Neb Soln NEB PRN; HYDROmorphone 1 MG/ML Syringe IVPUSH PRN; Metoclopramide 10 MG/2 ML SDV IVPUSH PRN; Morphine 2 MG/ML SYRINGE IVPUSH PRN; Naloxone 0.4 MG/ML SDV IVPUSH PRN; Ondansetron 4 MG/2 ML SDV IVPUSH PRN; droPERidol 5 MG/2 ML SDV IVPUSH PRN; fentaNYL 50 MCG/ML SDV IVPUSH PRN
[2024-05-16] MEDS: Lactated Ringers 1,000 ML IV SCH (10:00)
[2024-05-16] MEDS ORDERED: Bupivacaine 0.25% 10 ML SDV ONE (12:25)
[2024-05-16] MEDS ORDERED: Lidocaine 1% with EPINEPHrine 1:100,000 10 ML MDV ONE (12:25)
[2024-05-16] MEDS ORDERED: Midazolam 1 MG/ML 2 ML SDV ONE (12:26)
[2024-05-16] MEDS ORDERED: Propofol 200 MG/20 ML SDV ONE (12:27)
[2024-05-16] MEDS ORDERED: Lidocaine 2% 5 ML SDV ONE (12:27)
[2024-05-16] MEDS ORDERED: fentaNYL 100 MCG/2 ML SDV ONE (12:27)
[2024-05-16] MEDS ORDERED: ceFAZolin 1 GM Vial ONE (13:09)
[2024-05-16] MEDS ORDERED: Ondansetron 4 MG/2 ML SDV ONE (13:24)
== END 2024-05-16 14:32 | disposition home or self-care (01) ==
LOC: MW.SDS 09:25
PROVIDERS: ATTEND Surgery
DX: L72.0 Epidermal cyst (principal); G47.33 Obstructive sleep apnea (adult) (pediatric); E66.9 Obesity, unspecified; F17.210 Nicotine dependence, cigarettes, uncomplicated; Z68.31 Body mass index [BMI] 31.0-31.9, adult
CPT/HCPCS: 11403; J0690; J2250; J2405; J2704; J3010; J3490; J7120; 00300